=== PATIENT | female | born 1935 | race Caucasian/White ===

== ENCOUNTER 2017-07-08 07:04 | Outpatient (CLI) | payer MEDICARE ==
[2017-07-08 07:59] LABS: BASO # 0.1 x10^3/uL (0.0-0.2); BASO % 0 % (0-3); EOS # 0.1 x10^3/uL (0.0-0.7); EOS % 1 % (0-3); HEMATOCRIT 26.5 % (36.0-47.0); HEMOGLOBIN 9.1 g/dL (12.0-15.5); LYMPH # 4.8 x10^3/uL (1.0-4.8); LYMPH % 36 % (24-48); MEAN CORPUSCULAR HEMOGLOBIN 32 pg (25-35); MEAN CORPUSCULAR HGB CONC 34 g/dL (31-37); MEAN CORPUSCULAR VOLUME 94 fL (79-100); MONO # 1.5 x10^3/uL (0.0-1.1); MONO % 12 % (0-9); NEUT # 6.7 x10^3uL (1.8-7.7); NEUT % 51 % (31-73); PLATELET COUNT 106 x10^3/uL (140-400); RED BLOOD COUNT 2.83 x10^6/uL (3.50-5.40); RED CELL DISTRIBUTION WIDTH 18.4 % (11.5-14.5); WHITE BLOOD COUNT 13.3 x10^3/uL (4.0-11.0)
[2017-07-08 08:01] LABS: ADD MAN DIFF? YES
[2017-07-08 08:03] LABS: INR 1.1 (0.8-1.1); PROTHROMBIN TIME PATIENT 13.7 SEC (11.7-14.0)
[2017-07-08] MEDS ORDERED: LIDOCAINE WITH 8.4% SOD BICARB 3 ML DISP.SYRIN. (08:10)
[2017-07-08] MEDS ORDERED: MIDAZOLAM HCL/PF 2 MG/2 ML VIAL. (08:24)
[2017-07-08] MEDS ORDERED: fentaNYL PF VIAL 100 MCG/2 ML VIAL (08:25)
[2017-07-08] MEDS: LIDOCAINE WITH 8.4% SOD BICARB 3 ML DISP.SYRIN. IJ (08:54)
[2017-07-08] MEDS: MIDAZOLAM HCL/PF 2 MG/2 ML VIAL. IV (08:54)
[2017-07-08] MEDS: fentaNYL PF VIAL 100 MCG/2 ML VIAL IV (08:54)
[2017-07-08 11:28] LABS: % BANDS 10 % (0-9); % BASOS 1 % (0-3); % EOS 1 % (0-5); % LYMPHS 43 % (24-48); % METAS 2 % (0-0); % MONOS 7 % (0-10); % SEGS 36 % (35-66); NUCLEATED RBC 5; PLT ESTIMATE DECREASED (ADEQUATE)
[2017-07-08 11:29] LABS: ANISOCYTOSIS MOD; POLYCHROMASIA PRESENT
== END 2017-07-08 10:35 | disposition home or self-care (01) ==
LOC: INTRAD 07:04
DX: D69.6 Thrombocytopenia, unspecified (principal); D64.9 Anemia, unspecified
CPT/HCPCS: 36415; 38222; 77012; 85007; 85025; 85610; 88184; 88185; 88237; 99152; J2250; J3010

== ENCOUNTER → 2017-07-16 | Outpatient (CLI) | payer MEDICARE, BC | END | disposition home or self-care (01) | LOC: US 15:01 | DX: D64.9 Anemia, unspecified (principal); D61.818 Other pancytopenia; R16.2 Hepatomegaly with splenomegaly, not elsewhere classified | CPT/HCPCS: 76700 ==

== ENCOUNTER → 2017-07-21 | Outpatient (CLI) | payer MEDICARE, BC | END | disposition home or self-care (01) | LOC: RAD 12:38 | DX: C90.00 Multiple myeloma not having achieved remission (principal); M51.37 Other intervertebral disc degeneration, lumbosacral region; M43.17 Spondylolisthesis, lumbosacral region | CPT/HCPCS: 77075 ==

== ENCOUNTER 2017-08-26 10:23 | Inpatient (IN) | payer MEDICARE, BC ==
[2017-08-26 12:56] LABS: BASO % 0 % (0-3); EOS % 1 % (0-3); HEMATOCRIT 22.3 % (36.0-47.0); HEMOGLOBIN 7.6 g/dL (12.0-15.5); LYMPH # 0.7 x10^3/uL (1.0-4.8); LYMPH % 14 % (24-48); MEAN CORPUSCULAR HEMOGLOBIN 33 pg (25-35); MEAN CORPUSCULAR HGB CONC 34 g/dL (31-37); MEAN CORPUSCULAR VOLUME 96 fL (79-100); MONO # 0.7 x10^3/uL (0.0-1.1); MONO % 15 % (0-9); NEUT # 3.5 x10^3uL (1.8-7.7); NEUT % 70 % (31-73); PLATELET COUNT 45 x10^3/uL (140-400); RED BLOOD COUNT 2.34 x10^6/uL (3.50-5.40); RED CELL DISTRIBUTION WIDTH 20.7 % (11.5-14.5); WHITE BLOOD COUNT 4.9 x10^3/uL (4.0-11.0)
[2017-08-26 12:58] LABS: ADD MAN DIFF? YES
[2017-08-26 13:12] LABS: ALBUMIN 3.1 g/dL (3.4-5.0); ALBUMIN/GLOBULIN RATIO 1.3 (1.0-1.7); ALK PHOS 162 U/L (46-116); ALT (SGPT) 17 U/L (14-59); ANION GAP 7 (6-14); AST (SGOT) 15 U/L (15-37); BLOOD UREA NITROGEN 17 mg/dL (7-20); BUN/CREATININE RATIO 24 (6-20); CALCIUM 7.1 mg/dL (8.5-10.1); CARBON DIOXIDE 24 mmol/L (21-32); CHLORIDE 102 mmol/L (98-107); CREATININE 0.7 mg/dL (0.6-1.0); GFR 80.5; GLUCOSE 103 mg/dL (70-99); POTASSIUM 3.8 mmol/L (3.5-5.1); SODIUM 133 mmol/L (136-145); TOTAL BILIRUBIN 0.6 mg/dL (0.2-1.0); TOTAL PROTEIN 5.5 g/dL (6.4-8.2)
[2017-08-26 13:25] LABS: % ATYL 2 % (0-0); % BANDS 3 % (0-9); % LYMPHS 16 % (24-48); % MONOS 11 % (0-10); % SEGS 68 % (35-66); NUCLEATED RBC 5
[2017-08-26 13:27] LABS: ANISOCYTOSIS SLIGHT; PLT ESTIMATE DECREASED (ADEQUATE)
[2017-08-26] MEDS ORDERED: HYDROcodone/APAP 5/325MG 1 TAB TABLET PO (15:15)
[2017-08-26] MEDS ORDERED: CHOLECALCIFEROL (VITAMIN D3) 1,000 UNIT TABLET PO (15:30)
[2017-08-26] MEDS: LEVOTHYROXINE 50 MCG TABLET PO (15:30)
[2017-08-26] MEDS ORDERED: ONDANSETRON ODT 4 MG TAB.RAPDIS. PO (15:45)
[2017-08-26] MEDS: CYANOCOBALAMIN (VITAMIN B-12) 1,000 MCG TABLET. PO (16:00)
[2017-08-26 16:17] LABS: BILIRUBIN,URINE NEGATIVE (NEG); CLARITY,URINE CLEAR; COLOR,URINE YELLOW; GLUCOSE,URINE NEGATIVE (NEG); NITRITE,URINE NEGATIVE (NEG); PROTEIN,URINE NEGATIVE (NEG-TRACE); UROBILINOGEN,URINE 0.2 mg/dL (0.2 mg/dL)
[2017-08-26 16:27] LABS: BACTERIA,URINE 0 /HPF (0-FEW); RBC,URINE 0 /HPF (0-2); SQUAMOUS EPITHELIAL CELL,UR FEW /LPF
[2017-08-26] MEDS: CHOLECALCIFEROL (VITAMIN D3) 1,000 UNIT TABLET PO (17:34)
[2017-08-26] MEDS: ASPIRIN 325 MG TABLET PO (17:34)
[2017-08-26] MEDS: SIMVASTATIN 40 MG TABLET. PO (20:59)
[2017-08-26] MEDS: CALCIUM CARB/VIT D3 250/125 TABLET. PO (20:59)
[2017-08-26] MEDS: ACYCLOVIR 200 MG CAPSULE. PO (20:59)
[2017-08-26] MEDS: REVLIMID 10 MG PO (21:04)
[2017-08-27 04:42] LABS: ADD MAN DIFF? NO
[2017-08-27 04:49] LABS: BASO % 1 % (0-3); EOS # 0.1 x10^3/uL (0.0-0.7); EOS % 3 % (0-3); HEMATOCRIT 21.3 % (36.0-47.0); HEMOGLOBIN 7.2 g/dL (12.0-15.5); LYMPH # 0.8 x10^3/uL (1.0-4.8); LYMPH % 23 % (24-48); MEAN CORPUSCULAR HEMOGLOBIN 33 pg (25-35); MEAN CORPUSCULAR HGB CONC 34 g/dL (31-37); MEAN CORPUSCULAR VOLUME 96 fL (79-100); MONO # 0.5 x10^3/uL (0.0-1.1); MONO % 16 % (0-9); NEUT # 1.8 x10^3uL (1.8-7.7); NEUT % 57 % (31-73); PLATELET COUNT 44 x10^3/uL (140-400); RED BLOOD COUNT 2.22 x10^6/uL (3.50-5.40); RED CELL DISTRIBUTION WIDTH 20.3 % (11.5-14.5); WHITE BLOOD COUNT 3.2 x10^3/uL (4.0-11.0)
[2017-08-27 05:32] LABS: ALBUMIN 2.8 g/dL (3.4-5.0); ALBUMIN/GLOBULIN RATIO 1.2 (1.0-1.7); ALK PHOS 154 U/L (46-116); ALT (SGPT) 14 U/L (14-59); ANION GAP 10 (6-14); AST (SGOT) 15 U/L (15-37); BLOOD UREA NITROGEN 12 mg/dL (7-20); BUN/CREATININE RATIO 15 (6-20); CALCIUM 7.7 mg/dL (8.5-10.1); CARBON DIOXIDE 24 mmol/L (21-32); CHLORIDE 107 mmol/L (98-107); CREATININE 0.8 mg/dL (0.6-1.0); GLUCOSE 79 mg/dL (70-99); PHOSPHORUS 2.3 mg/dL (2.6-4.7); POTASSIUM 3.7 mmol/L (3.5-5.1); SODIUM 141 mmol/L (136-145); TOTAL BILIRUBIN 0.4 mg/dL (0.2-1.0); TOTAL PROTEIN 5.1 g/dL (6.4-8.2)
[2017-08-27] MEDS: LEVOTHYROXINE 50 MCG TABLET PO (06:09)
[2017-08-27] MEDS: CYANOCOBALAMIN (VITAMIN B-12) 1,000 MCG TABLET. PO (08:52)
[2017-08-27] MEDS: CALCIUM CARB/VIT D3 250/125 TABLET. PO (08:52)
[2017-08-27] MEDS: ACYCLOVIR 200 MG CAPSULE. PO (08:52)
[2017-08-27] MEDS ORDERED: CHOLECALCIFEROL 2000 UNIT PO (13:00)
[2017-08-27] MEDS ORDERED: IV NORMAL SALINE 1000ML BAG 1,000 ML IV (15:00)
[2017-08-31] MEDS ORDERED: DEXAMETHASONE 4 MG TABLET PO (08:00)
[2017-09-04] MEDS ORDERED: DEXAMETHASONE 4 MG TABLET PO (08:00)
== END 2017-08-27 15:45 | disposition home or self-care (01) | DRG 640 ==
LOC: 6 SOUTH 10:23
DX: E86.0 Dehydration (principal); D61.810 Antineoplastic chemotherapy induced pancytopenia; C90.00 Multiple myeloma not having achieved remission; E86.9 Volume depletion, unspecified; E03.9 Hypothyroidism, unspecified; E78.5 Hyperlipidemia, unspecified; T45.1X5A Adverse effect of antineoplastic and immunosuppressive drugs, initial encounter; W19.XXXA Unspecified fall, initial encounter; M19.90 Unspecified osteoarthritis, unspecified site; I95.9 Hypotension, unspecified; I10 Essential (primary) hypertension; Z82.3 Family history of stroke; Z82.49 Family history of ischemic heart disease and other diseases of the circulatory system; Y93.89 Activity, other specified; Y92.89 Other specified places as the place of occurrence of the external cause; Y99.8 Other external cause status; Z88.8 Allergy status to other drugs, medicaments and biological substances; Z88.2 Allergy status to sulfonamides; Z88.1 Allergy status to other antibiotic agents
CPT/HCPCS: 36415; 80053; 81001; 83735; 84100; 85007; 85025

== ENCOUNTER → 2017-09-03 | Outpatient (CLI) | payer MEDICARE, BC | END | disposition home or self-care (01) | LOC: US 12:42 | DX: C90.00 Multiple myeloma not having achieved remission (principal); M79.89 Other specified soft tissue disorders | CPT/HCPCS: 93970 ==

== ENCOUNTER → 2017-09-25 | Outpatient (CLI) | payer MEDICARE, BC ==
[2017-09-25] MEDS: REGADENOSON 0.4 MG/5 ML DISP.SYRIN. IV (08:53)
== END | disposition home or self-care (01) ==
LOC: NM 09:13
DX: I21.4 Non-ST elevation (NSTEMI) myocardial infarction (principal); R53.1 Weakness; Z87.891 Personal history of nicotine dependence
CPT/HCPCS: 78452; 93017; 96374; 96375; 96376; A9500; J2785

== ENCOUNTER 2017-12-31 15:10 | Inpatient (IN) | payer MEDICARE, BC ==
[~2017-12-31 15:10] MED LIST: ACYC800T PO; ASCO10002 PO; ASPI-482 PO; ASPI325T8 PO; CALC500T PO; CHOL2000 PO; CHOL200074 PO; CYAN500T PO; DEXA4TAB PO; ESOM20CA PO; HYDR-2758 PO; HYDR-965 PO; LEVO50TA5 PO; METO50TA6 PO; OMEG1CAP27 PO; ONDA4TAB12 PO; ONDA8TAB9 PO; PRED-220 PO; PRED20TA PO; SIMV40TA3 PO; TRAM50TA PO; non
[2017-12-31] MEDS ORDERED: PANT20TA2 PO (15:59)
[2017-12-31] MEDS ORDERED: FLUD0.1T PO (15:59)
[2017-12-31] MEDS ORDERED: GABA-585 PO (15:59)
[2017-12-31] MEDS ORDERED: ASPI-612 PO (15:59)
[2017-12-31] MEDS ORDERED: SUCR1TAB35 PO (15:59)
[2017-12-31] MEDS: POTASSIUM CL 20MEQ-0.45% NACL 1,000 ML IV SCH (18:33)
[2017-12-31] MEDS: PANTOPRAZOLE IV PUSH 40 MG VIAL. IVP SCH (18:35)
[2017-12-31] MEDS: LEVOTHYROXINE 50 MCG TABLET PO SCH (18:36)
[2017-12-31] MEDS: CYANOCOBALAMIN (VITAMIN B-12) 1,000 MCG TABLET. PO SCH (18:37)
[2017-12-31] MEDS: ONDANSETRON ODT 4 MG TAB.RAPDIS. PO PRN (18:37)
[2017-12-31] MEDS: ASPIRIN ENTERIC COATED 81 MG TABLET.DR. PO SCH (18:37)
[2017-12-31] MEDS: HYDROcodone/APAP 5/325MG 1 TAB TABLET PO PRN ×2 (18:38→23:36)
[2017-12-31 18:52] LABS: BILIRUBIN,URINE NEGATIVE (NEG); CLARITY,URINE CLEAR; COLOR,URINE YELLOW; NITRITE,URINE NEGATIVE (NEG); PROTEIN,URINE NEGATIVE (NEG-TRACE); UROBILINOGEN,URINE 0.2 mg/dL (0.2 mg/dL)
[2017-12-31 19:00] VITALS: BP 161/83
[2017-12-31 19:04] LABS: BACTERIA,URINE MODERATE /HPF (0-FEW); RBC,URINE 0 /HPF (0-2); SQUAMOUS EPITHELIAL CELL,UR FEW /LPF
[2017-12-31 19:05] LABS: HYALINE CASTS, URINE OCCASIONAL /HPF
[2017-12-31 19:54] LABS: BASO % 1 % (0-3); EOS % 1 % (0-3); HEMATOCRIT 33.6 % (36.0-47.0); HEMOGLOBIN 11.6 g/dL (12.0-15.5); LYMPH # 1.5 x10^3/uL (1.0-4.8); LYMPH % 27 % (24-48); MEAN CORPUSCULAR HEMOGLOBIN 31 pg (25-35); MEAN CORPUSCULAR HGB CONC 34 g/dL (31-37); MEAN CORPUSCULAR VOLUME 89 fL (79-100); MONO # 0.7 x10^3/uL (0.0-1.1); MONO % 13 % (0-9); NEUT # 3.1 x10^3uL (1.8-7.7); NEUT % 58 % (31-73); PLATELET COUNT 225 x10^3/uL (140-400); RED BLOOD COUNT 3.77 x10^6/uL (3.50-5.40); RED CELL DISTRIBUTION WIDTH 16.1 % (11.5-14.5); WHITE BLOOD COUNT 5.3 x10^3/uL (4.0-11.0)
[2017-12-31 20:15] LABS: ALBUMIN 3.4 g/dL (3.4-5.0); ALBUMIN/GLOBULIN RATIO 1.3 (1.0-1.7); CALCIUM 8.8 mg/dL (8.5-10.1); CREATININE 0.8 mg/dL (0.6-1.0); TOTAL BILIRUBIN 0.7 mg/dL (0.2-1.0)
[2017-12-31 20:17] LABS: POTASSIUM 2.3 mmol/L (3.5-5.1)
[2017-12-31] MEDS: SIMVASTATIN 40 MG TABLET. PO SCH (21:20)
[2017-12-31] MEDS: GABAPENTIN 400 MG CAPSULE. PO SCH (21:20)
[2017-12-31] MEDS: FLUDROCORTISONE 0.1 MG TABLET PO SCH (21:20)
[2017-12-31] MEDS: ACYCLOVIR 200 MG CAPSULE. PO SCH (21:20)
[2017-12-31] MEDS: POTASSIUM CHLORIDE 10MEQ 100 ML IV SCH ×3 (21:21→23:36)
[2017-12-31 23:01] VITALS: BP 144/75
[2018-01-01] MEDS: POTASSIUM CHLORIDE 10MEQ 100 ML IV SCH (00:38)
[2018-01-01 03:09] VITALS: BP 117/67
[2018-01-01] MEDS: LEVOTHYROXINE 50 MCG TABLET PO SCH (05:31)
[2018-01-01] MEDS: POTASSIUM CL 20MEQ-0.45% NACL 1,000 ML IV SCH (05:32)
[2018-01-01] MEDS: PANTOPRAZOLE IV PUSH 40 MG VIAL. IVP SCH (06:36)
[2018-01-01 07:00] VITALS: BP 149/68
[2018-01-01] MEDS ORDERED: IOHEXOL 300 MG/ML 100ML VIAL. IV ONE (08:15)
[2018-01-01] MEDS ORDERED: CONTRAST GIVEN. MC PRN (08:15)
[2018-01-01] MEDS ORDERED: IOHEXOL 240 MG/ML 50ML VIAL. PO ONE (08:15)
--- NOTE | 2018-01-01 08:55 | PDOC ---
PROGRESS NOTES Subjective Subjective HPI - f/u of Multiple myeloma ROS - abd pain better Objective Objective Vital Signs Date Time Temp Pulse Resp B/P (MAP) Pulse Ox O2 Delivery O2 Flow Rate FiO2 01/01/18 07:00 98.5 61 16 149/68 (95) 98 Room Air 98.5 Intake and Output 01/01/18 07:00 Intake Total 0 ml Output Total 600 ml Balance -600 ml Intake Oral 0 ml Output Urine Total 600 ml # Voids 1 Physical Exam Abdomen: Soft Heart: Normal S1, Normal S2 General: Alert, Oriented X3, No acute distress Neuro: Normal speech Psych/Mental Status: Mental status NL Assessment Assessment Imp/Plan: 1. Multiple myeloma, last chemo on 12/08/17. Defer further chemo until her functional status improves. 2. Abd pain - CT pending 3. Hypokalemia, supplementation per Dr Coleman I d/w Dr Coleman Comment Review of Relevant I have reviewed the following items jamir (where applicable) has been applied. Labs Laboratory Tests Test 12/31/17 17:50 12/31/17 19:00 01/01/18 05:40 Urine Collection Type Void Urine Color Yellow Urine Clarity Clear Urine pH 7.0 Urine Specific [place] 1.010 Urine Protein Negative mg/dL (NEG-TRACE) Urine Glucose (UA) Negative mg/dL (NEG) Urine Ketones (Stick) Trace mg/dL (NEG) Urine Blood Small (NEG) Urine Nitrite Negative (NEG) Urine Bilirubin Negative (NEG) Urine Urobilinogen Dipstick 0.2 mg/dL (0.2 mg/dL) Urine Leukocyte Esterase Small (NEG) Urine RBC 0 /HPF (0-2) Urine WBC 5-10 /HPF (0-4) Urine Squamous Epithelial Cells Few /LPF Urine Bacteria Moderate /HPF (0-FEW) Urine Hyaline Casts Occasional /HPF Urine Mucus Slight /LPF White Blood Count 5.3 x10^3/uL (4.0-11.0) Red Blood Count 3.77 x10^6/uL (3.50-5.40) Hemoglobin 11.6 g/dL (12.0-15.5) Hematocrit 33.6 % (36.0-47.0) Mean Corpuscular Volume 89 fL (79-100) Mean Corpuscular Hemoglobin 31 pg (25-35) Mean Corpuscular Hemoglobin Concent 34 g/dL (31-37) Red Cell Distribution Width 16.1 % (11.5-14.5) Platelet Count 225 x10^3/uL (140-400) Neutrophils (%) (Auto) 58 % (31-73) Lymphocytes (%) (Auto) 27 % (24-48) Monocytes (%) (Auto) 13 % (0-9) Eosinophils (%) (Auto) 1 % (0-3) Basophils (%) (Auto) 1 % (0-3) Neutrophils # (Auto) 3.1 x10^3uL (1.8-7.7) Lymphocytes # (Auto) 1.5 x10^3/uL (1.0-4.8) Monocytes # (Auto) 0.7 x10^3/uL (0.0-1.1) Eosinophils # (Auto) 0.0 x10^3/uL (0.0-0.7) Basophils # (Auto) 0.0 x10^3/uL (0.0-0.2) Sodium Level 139 mmol/L (136-145) Potassium Level 2.3 mmol/L (3.5-5.1) 3.1 mmol/L (3.5-5.1) Chloride Level 101 mmol/L (98-107) Carbon Dioxide Level 31 mmol/L (21-32) Anion Gap 7 (6-14) Blood Urea Nitrogen 8 mg/dL (7-20) Creatinine 0.8 mg/dL (0.6-1.0) Estimated GFR (Cockcroft-Gault) 69.0 BUN/Creatinine Ratio 10 (6-20) Glucose Level 138 mg/dL (70-99) Calcium Level 8.8 mg/dL (8.5-10.1) Total Bilirubin 0.7 mg/dL (0.2-1.0) Aspartate Amino Transf (AST/SGOT) 15 U/L (15-37) Alanine Aminotransferase (ALT/SGPT) 18 U/L (14-59) Alkaline Phosphatase 51 U/L (46-116) Total Protein 6.0 g/dL (6.4-8.2) Albumin 3.4 g/dL (3.4-5.0) Albumin/Globulin Ratio 1.3 (1.0-1.7) Amylase Level 49 U/L (25-115) Lipase 208 U/L (73-393) Laboratory Tests Test 12/31/17 17:50 12/31/17 19:00 01/01/18 05:40 Urine Collection Type Void Urine Color Yellow Urine Clarity Clear Urine pH 7.0 Urine Specific [place] 1.010 Urine Protein Negative mg/dL (NEG-TRACE) Urine Glucose (UA) Negative mg/dL (NEG) Urine Ketones (Stick) Trace mg/dL (NEG) Urine Blood Small (NEG) Urine Nitrite Negative (NEG) Urine Bilirubin Negative (NEG) Urine Urobilinogen Dipstick 0.2 mg/dL (0.2 mg/dL) Urine Leukocyte Esterase Small (NEG) Urine RBC 0 /HPF (0-2) Urine WBC 5-10 /HPF (0-4) Urine Squamous Epithelial Cells Few /LPF Urine Bacteria Moderate /HPF (0-FEW) Urine Hyaline Casts Occasional /HPF Urine Mucus Slight /LPF White Blood Count 5.3 x10^3/uL (4.0-11.0) Red Blood Count 3.77 x10^6/uL (3.50-5.40) Hemoglobin 11.6 g/dL (12.0-15.5) Hematocrit 33.6 % (36.0-47.0) Mean Corpuscular Volume 89 fL (79-100) Mean Corpuscular Hemoglobin 31 pg (25-35) Mean Corpuscular Hemoglobin Concent 34 g/dL (31-37) Red Cell Distribution Width 16.1 % (11.5-14.5) Platelet Count 225 x10^3/uL (140-400) Neutrophils (%) (Auto) 58 % (31-73) Lymphocytes (%) (Auto) 27 % (24-48) Monocytes (%) (Auto) 13 % (0-9) Eosinophils (%) (Auto) 1 % (0-3) Basophils (%) (Auto) 1 % (0-3) Neutrophils # (Auto) 3.1 x10^3uL (1.8-7.7) Lymphocytes # (Auto) 1.5 x10^3/uL (1.0-4.8) Monocytes # (Auto) 0.7 x10^3/uL (0.0-1.1) Eosinophils # (Auto) 0.0 x10^3/uL (0.0-0.7) Basophils # (Auto) 0.0 x10^3/uL (0.0-0.2) Sodium Level 139 mmol/L (136-145) Potassium Level 2.3 mmol/L (3.5-5.1) 3.1 mmol/L (3.5-5.1) Chloride Level 101 mmol/L (98-107) Carbon Dioxide Level 31 mmol/L (21-32) Anion Gap 7 (6-14) Blood Urea Nitrogen 8 mg/dL (7-20) Creatinine 0.8 mg/dL (0.6-1.0) Estimated GFR (Cockcroft-Gault) 69.0 BUN/Creatinine Ratio 10 (6-20) Glucose Level 138 mg/dL (70-99) Calcium Level 8.8 mg/dL (8.5-10.1) Total Bilirubin 0.7 mg/dL (0.2-1.0) Aspartate Amino Transf (AST/SGOT) 15 U/L (15-37) Alanine Aminotransferase (ALT/SGPT) 18 U/L (14-59) Alkaline Phosphatase 51 U/L (46-116) Total Protein 6.0 g/dL (6.4-8.2) Albumin 3.4 g/dL (3.4-5.0) Albumin/Globulin Ratio 1.3 (1.0-1.7) Amylase Level 49 U/L (25-115) Lipase 208 U/L (73-393) Medications Current Medications Potassium Chloride/Sodium Chloride 1,000 ml @ 100 mls/hr Q10H IV Last administered on 01/01/18 05:32; Start 12/31/17 at 17:30 Aspirin (Ecotrin) 81 mg DAILY PO Last administered on 12/31/17at 18:37; Start 12/31/17 at 18:00 Fludrocortisone Acetate (Florinef) 0.1 mg BID PO Last administered on 21:20; Start 12/31/17 at 21:00 Gabapentin (Neurontin) 400 mg HS PO Last administered on 12/31/17at 21:20; Start 12/31/17 at 21:00 Acetaminophen/ Hydrocodone Bitart (Lortab 5/325) 1 tab PRN Q4HRS PRN PO PAIN Last administered on 12/31/17at 23:36; Start 12/31/17 at 17:00 Acyclovir (Zovirax) 800 mg BID PO Last administered on 12/31/17at 21:20; Start 12/31/17 at 21:00 Vitamin D (Vitamin D3) 2,000 unit DAILY PO ; Start 01/01/18 at 09:00 Cyanocobalamin (Vitamin B-12) 500 mcg DAILY PO Last administered on 12/31/17at 18:37; Start 12/31/17 at 18:00 Levothyroxine Sodium (Synthroid) 50 mcg DAILY06 PO Last administered on at 05:31; Start 12/31/17 at 18:00 Ondansetron HCl (Zofran Odt) 4 mg PRN Q8HRS PRN PO NAUSEA/VOMITING Last administered on 12/31/17at 18:37; Start 12/31/17 at 17:15 Simvastatin (Zocor) 40 mg QHS PO Last administered on 12/31/17at 21:20; Start 12/31/17 at 21:00 Pantoprazole Sodium (PROTONIX VIAL for IV PUSH) 40 mg DAILY07 IVP Last administered on 01/01/18at 06:36; Start 12/31/17 at 17:30 Potassium Chloride/Water 100 ml @ 100 mls/hr Q1H IV Last administered on 01/01at 00:38; Start 12/31/17 at 21:00; Stop 01/01/18 at 00:59; Status DC Iohexol (Omnipaque 300 Mg/ml) 75 ml 1X ONCE IV ; Start 01/01/18 at 08:15; Stop 01/01/18 at 08:16; Status DC Iohexol (Omnipaque 240 Mg/ml) 50 ml 1X ONCE PO ; Start 01/01/18 at 08:15; Stop 01/01/18 at 08:16; Status DC Info (CONTRAST GIVEN -- Rx MONITORING) 1 each PRN DAILY PRN MC SEE COMMENTS; Start 01/01/18 at 08:15; Stop 01/03/18 at 08:14 Active Scripts Active Reported Gabapentin 100 Mg Capsule 400 Mg PO HS Fludrocortisone Acetate 0.1 Mg Tablet 0.1 Mg PO BID Aspirin Ec (Aspirin) 81 Mg Tablet. 1 Tab PO DAILY Hydrocodone-Apap 5-325 (Hydrocodone Bit/Acetaminophen) 1 Each Tablet 1 Tab PO PRN Q4HRS PRN Acyclovir 800 Mg Tablet 1 Tab PO BID Vitamin B-12 (Cyanocobalamin (Vitamin B-12)) 500 Mcg Tablet 500 Mcg PO DAILY Vitamin D-3 (Cholecalciferol (Vitamin D3)) 2,000 Unit Capsule 2,000 Unit PO AFTRNOON Zofran (Ondansetron Hcl) 8 Mg Tablet 1 Tab PO Q8HRS PRN Simvastatin 40 Mg Tablet 1 Tab PO QHS Levothyroxine Sodium 50 Mcg Tablet 1 Tab PO DAILY take 10 tablets by mouth once weekly on days 1, 8, and 15 of each 21 day cycle. Vitals/I & O Vital Sign - Last 24 Hours 12/31/17 12/31/17 12/31/17 12/31/17 18:38 19:00 20:00 23:01 Temp 98.4 98.9 98.4 98.9 Pulse 64 63 Resp 2 20 20 B/P (MAP) 161/83 (109) 144/75 (98) Pulse Ox 98 99 O2 Delivery Room Air Room Air Room Air Room Air 12/31/17 01/01/18 01/01/18 01/01/18 23:36 00:38 03:09 07:00 Temp 98.5 98.5 98.5 98.5 Pulse 68 61 Resp 20 16 B/P (MAP) 117/67 (84) 149/68 (95) Pulse Ox 96 98 O2 Delivery Room Air Room Air Room Air Room Air Intake and Output 12/31/17 12/31/17 01/01/18 15:00 23:00 07:00 Intake Total 0 ml Output Total 600 ml Balance 0 ml -600 ml SABRINA ABARCA MD Jan 01, 2018 08:55
--- NOTE | 2018-01-01 09:28 | HP ---
ADMIT DATE: 12/31/2017 CHIEF COMPLAINT AND HISTORY OF PRESENT ILLNESS: This 82-year-old white female is well known to me from followup in the office. The patient was seen in the office on the day of admission with progressive weight loss and weakness. She had no further episodes of syncope since starting Florinef. She had abdominal pain which was in the epigastric area, made worse with eating, for which she had been taking Carafate and Protonix now for several days without improvement. She was unable to eat or drink much of anything. Blood pressure was 100/60. It was felt she was somewhat dehydrated as well as had ongoing abdominal pain with no appetite. Her chemotherapy has now been held for over the last 3 weeks, with no improvement in her symptoms and the patient was felt necessary for admission for hydration and further workup of her abdominal pain. PAST MEDICAL HISTORY: Remarkable for multiple myeloma, orthostatic hypotension with multiple episodes of syncope, which seemed to be at this point at least remedied by the Florinef. She has a history of hypertension, hypothyroidism and hyperlipidemia. MEDICATIONS: Medications were brought with the patient, listed on the computer and had been addressed. ALLERGIES: SHE IS ALLERGIC TO SULFA AND AUGMENTIN. SOCIAL HISTORY: She is nonsmoker, nondrinker. , lives at home with her . FAMILY HISTORY: Noncontributory. REVIEW OF SYSTEMS: As mentioned above. PHYSICAL EXAMINATION: GENERAL: She is a well-developed, well-nourished white female, who appears ill. VITAL SIGNS: Stable. She is afebrile. Blood pressure is on the low side. HEAD, EYES, EARS, NOSE AND THROAT: Remarkable for dryness of mucous membranes. NECK: Supple, without any thyromegaly. CHEST: Clear to auscultation and percussion. HEART: Regular rate and rhythm, without S3, S4 or murmur. ABDOMEN: Soft, nontender, without hepatosplenomegaly or masses. There is marked epigastric tenderness. EXTREMITIES: Without cyanosis, clubbing or edema. NEUROLOGIC: She is intact. IMPRESSION: Abdominal pain with poor p.o. intake, dehydration with abdominal pain and multiple other problems listed above. PLAN: The patient has been admitted. Labs will be checked. IV fluids will be given. GI will be asked to see her. CT scanning of the abdomen will be done and the patient will be monitored, managed and treated appropriately. JESSICA ALANIZ MD DR: Markos JOB#: [id number] / [id number]
--- NOTE | 2018-01-01 09:57 | PDOC2 ---
GI CONSULT Reason For Consult: Abdominal pain, h/o Multiple Myeloma HPI: HPI: Pt is a 82 y/o female who was a direct admit by her PCP, Dr. Coleman, for abdominal pain and h/o multiple myeloma. She reports mainly upper abdominal pain , which also may be felt across her entire abdomen at times. The pain is aggravated by eating, though pt has not identified any particular dietary triggers. The pain seems to be worse at night. She does admit to associated nausea. She reports the pain was at its worst last . She saw her PCP on Thursday, and was given prescriptions for Pantoprazole and Sucralfate. She tried these medications (only for a short period) and had not noticed much improvement on the medications. She reports lack of appetite and early satiety. She has not been able to eat much, and has been feeling progressively weaker. Pt was also reportedly diagnosed with hypokalemia at her PCP office recently and was started on OTC potassium supplements. She felt this may have caused abdominal pain. She is also taking Fludrocortisone to help prevent hypotension, as she has had 8 syncopal episodes while on chemotherapy. Pt was diagnosed with multiple myeloma and started chemotherapy in 06/2017. Her last chemotherapy treatment was ~3 weeks ago. Pt does admit to having intermittent episodes of diarrhea and fecal incontinence while on chemotherapy. She last had a diarrheal stool on Thursday. She had a small, formed BM yesterday. She has reportedly had negative stool studies previously. Pt does not believe she has had an EGD in the past. She believes her last colonoscopy may have been 10 or more years ago. Pt has h/o abdominal hernia surgery, done 15-20 years ago. She was found to be hypokalemic again on admission and was started on potassium. She is currently drinking contrast for a CT A/P which has been scheduled for today. PMH: PMH: Remarkable for multiple myeloma, orthostatic hypotension with multiple episodes of syncope, which seemed to be at this point at least remedied by the Florinef. She has a history of hypertension, hypothyroidism and hyperlipidemia. FH: Family History: No pertinent hx Social History: Smoke: No ALCOHOL: none Drugs: None ROS: GEN: Denies fevers, chills, sweats HEENT: Denies blurred vision, sore throat CV: Denies chest pain RESP: Denies shortness of air, cough GI: Per HPI : Denies hematuria, dysuria ENDO: + weight loss NEURO: Denies confusion, dizziness MSK:+ weakness SKIN: Denies jaundice, pruritus Vitals: Vitals: Vital Signs Date Time Temp Pulse Resp B/P (MAP) Pulse Ox O2 Delivery O2 Flow Rate FiO2 01/01/18 07:00 98.5 61 16 149/68 (95) 98 Room Air 98.5 Labs: Labs: Laboratory Tests Test 12/31/17 17:50 12/31/17 19:00 01/01/18 05:40 Urine Collection Type Void Urine Color Yellow Urine Clarity Clear Urine pH 7.0 Urine Specific [place] 1.010 Urine Protein Negative mg/dL (NEG-TRACE) Urine Glucose (UA) Negative mg/dL (NEG) Urine Ketones (Stick) Trace mg/dL (NEG) Urine Blood Small (NEG) Urine Nitrite Negative (NEG) Urine Bilirubin Negative (NEG) Urine Urobilinogen Dipstick 0.2 mg/dL (0.2 mg/dL) Urine Leukocyte Esterase Small (NEG) Urine RBC 0 /HPF (0-2) Urine WBC 5-10 /HPF (0-4) Urine Squamous Epithelial Cells Few /LPF Urine Bacteria Moderate /HPF (0-FEW) Urine Hyaline Casts Occasional /HPF Urine Mucus Slight /LPF White Blood Count 5.3 x10^3/uL (4.0-11.0) Red Blood Count 3.77 x10^6/uL (3.50-5.40) Hemoglobin 11.6 g/dL (12.0-15.5) Hematocrit 33.6 % (36.0-47.0) Mean Corpuscular Volume 89 fL (79-100) Mean Corpuscular Hemoglobin 31 pg (25-35) Mean Corpuscular Hemoglobin Concent 34 g/dL (31-37) Red Cell Distribution Width 16.1 % (11.5-14.5) Platelet Count 225 x10^3/uL (140-400) Neutrophils (%) (Auto) 58 % (31-73) Lymphocytes (%) (Auto) 27 % (24-48) Monocytes (%) (Auto) 13 % (0-9) Eosinophils (%) (Auto) 1 % (0-3) Basophils (%) (Auto) 1 % (0-3) Neutrophils # (Auto) 3.1 x10^3uL (1.8-7.7) Lymphocytes # (Auto) 1.5 x10^3/uL (1.0-4.8) Monocytes # (Auto) 0.7 x10^3/uL (0.0-1.1) Eosinophils # (Auto) 0.0 x10^3/uL (0.0-0.7) Basophils # (Auto) 0.0 x10^3/uL (0.0-0.2) Sodium Level 139 mmol/L (136-145) Potassium Level 2.3 mmol/L (3.5-5.1) 3.1 mmol/L (3.5-5.1) Chloride Level 101 mmol/L (98-107) Carbon Dioxide Level 31 mmol/L (21-32) Anion Gap 7 (6-14) Blood Urea Nitrogen 8 mg/dL (7-20) Creatinine 0.8 mg/dL (0.6-1.0) Estimated GFR (Cockcroft-Gault) 69.0 BUN/Creatinine Ratio 10 (6-20) Glucose Level 138 mg/dL (70-99) Calcium Level 8.8 mg/dL (8.5-10.1) Total Bilirubin 0.7 mg/dL (0.2-1.0) Aspartate Amino Transf (AST/SGOT) 15 U/L (15-37) Alanine Aminotransferase (ALT/SGPT) 18 U/L (14-59) Alkaline Phosphatase 51 U/L (46-116) Total Protein 6.0 g/dL (6.4-8.2) Albumin 3.4 g/dL (3.4-5.0) Albumin/Globulin Ratio 1.3 (1.0-1.7) Amylase Level 49 U/L (25-115) Lipase 208 U/L (73-393) Allergies: Coded Allergies: Sulfa (Sulfonamide Antibiotics) (Verified Allergy, Intermediate, Unknown, 12/05/15) famciclovir (Verified Allergy, Intermediate, ITCH, 12/05/15) amoxicillin (Verified Adverse Reaction, Intermediate, Diarrhea, 12/06/15) clavulanic acid (Verified Adverse Reaction, Intermediate, Diarrhea, ) Medications: Current Medications Medications (Trade) Dose Ordered Sig/Sam Route PRN Reason Start Time Stop Time Status Last Admin Dose Admin Potassium Chloride/Sodium Chloride 1,000 ml @ 100 mls/hr Q10H IV 12/31/17 17:30 01/01/18 05:32 Aspirin (Ecotrin) 81 mg DAILY PO 12/31/17 18:00 12/31/17 18:37 Fludrocortisone Acetate (Florinef) 0.1 mg BID PO 12/31/17 21:00 12/31/17 21:20 Gabapentin (Neurontin) 400 mg HS PO 12/31/17 21:00 12/31/17 21:20 Acetaminophen/ Hydrocodone Bitart (Lortab 5/325) 1 tab PRN Q4HRS PRN PO PAIN 12/31/17 17:00 12/31/17 23:36 Acyclovir (Zovirax) 800 mg BID PO 12/31/17 21:00 12/31/17 21:20 Cyanocobalamin (Vitamin B-12) 500 mcg DAILY PO 12/31/17 18:00 12/31/17 18:37 Levothyroxine Sodium (Synthroid) 50 mcg DAILY06 PO 12/31/17 18:00 01/01/18 05:31 Ondansetron HCl (Zofran Odt) 4 mg PRN Q8HRS PRN PO NAUSEA/VOMITING 12/31/17 17:15 12/31/17 18:37 Simvastatin (Zocor) 40 mg QHS PO 12/31/17 21:00 12/31/17 21:20 Pantoprazole Sodium (PROTONIX VIAL for IV PUSH) 40 mg DAILY07 IVP 12/31/17 17:30 01/01/18 06:36 Potassium Chloride/Water 100 ml @ 100 mls/hr Q1H IV 12/31/17 21:00 01/01/18 00:59 DC 01/01/18 00:38 Imaging: Imaging: No current imaging studies PE: GEN: NAD HEENT: Atraumatic, PERRLA LUNGS: CTAB HEART: RRR, no murmurs ABD: TTP epigastric, RUQ, RLQ, LLQ EXTREMITY: No edema SKIN: No rashes, no jaundice NEURO/PSYCH: A & O 3 A/P: A/P: Abdominal pain, mainly upper abdomen -Await CT A/P results -Consider EGD if negative and symptoms persist -Recommend PPI daily Hypokalemia -Replacement per Dr. Coleman -Checking magnesium level Multiple Myeloma -On chemotherapy treatments since 06/2017, last treatment in 11/2018 -Follows with oncology, treatment on hold for now CRC screening -Last colonoscopy may have been 10 or more years ago -Consider colonoscopy as outpatient in future CAYDEN ASHER Jan 01, 2018 09:57
[2018-01-01] MEDS: ASPIRIN ENTERIC COATED 81 MG TABLET.DR. PO SCH (10:38)
[2018-01-01] MEDS: CYANOCOBALAMIN (VITAMIN B-12) 1,000 MCG TABLET. PO SCH (10:38)
[2018-01-01] MEDS: FLUDROCORTISONE 0.1 MG TABLET PO SCH ×2 (10:38→20:50)
[2018-01-01] MEDS: CHOLECALCIFEROL (VITAMIN D3) 1,000 UNIT TABLET PO SCH (10:39)
[2018-01-01] MEDS: ACYCLOVIR 200 MG CAPSULE. PO SCH ×2 (10:40→20:51)
[2018-01-01 11:00] VITALS: BP 134/76
--- NOTE | 2018-01-01 11:33 | RAD ---
CT of the abdomen and pelvis with contrast, 01/01/2018: HISTORY: Abdominal pain Multidetector CT imaging was performed following oral and IV administration of contrast. No hepatic abnormality is detected. The gallbladder is unremarkable. No pancreatic abnormality is seen. The spleen is of normal size. No renal or adrenal abnormality is detected. There is mild aortoiliac calcific plaquing without evidence of aneurysm. No abdominal or pelvic adenopathy is seen. The bladder is unremarkable. The bowel loops are not dilated. No free fluid or free air is evident in the abdomen or pelvis. There are a few scattered lucencies in the bones compatible with the given history of multiple myeloma. The most prominent of these lesions lies in the left iliac bone. There is a mild superior endplate deformity at L4 of indeterminate age. There is chronic grade 2 spondylolisthesis at L5-S1. That disc space is fused. There is moderate underlying central spinal stenosis at that level. IMPRESSION: 1. No acute abdominal or pelvic abnormality is detected. 2. Scattered osseous lucencies compatible with the history of multiple myeloma. 3. Grade 2 chronic spondylolisthesis at L5-S1 with moderate underlying central spinal stenosis. PQRS Compliance Statement: One or more of the following individualized dose reduction techniques were utilized for this examination: 1. Automated exposure control 2. Adjustment of the mA and/or kV according to patient size 3. Use of iterative reconstruction technique Electronically signed by: Eugene Horton MD (01/01/2018 11:30 AM) [facility]
[2018-01-01] MEDS: POTASSIUM CHLORIDE 40 MEQ in IV 1/2 NORMAL SALINE 1,000 ML IV SCH (14:37)
--- NOTE | 2018-01-01 14:41 | CONS ---
DATE OF CONSULTATION: 12/31/2017 REQUESTING PHYSICIAN: Dr. Sudheer Mims REASON FOR CONSULTATION: Multiple myeloma, now admitted with abdominal pain. HISTORY OF PRESENT ILLNESS: The patient is an 82-year-old female who was diagnosed with stage 2 multiple myeloma by a bone marrow aspiration and biopsy on 07/08/2017 which revealed 95% plasma cells. Serum protein electrophoresis on 07/06/2017 did not reveal any M-spike. Serum free light chains revealed elevated lambda free light chain at 60.25 with kappa lambda ratio of 0. She also had evidence of diffuse bony demineralization consistent with multiple myeloma. She was initially started on chemotherapy with Revlimid, Velcade and Decadron on 07/27/2017. However, in view of repeated syncopal episodes, Revlimid was discontinued and she continued to get Velcade. She received cycle #7, day #1 of Velcade on 12/08/2017 and then even the Velcade and Decadron was discontinued because of repeated syncopal episodes. She has had extensive workup for syncope with no clear etiology. She has not had any recurrent episodes since the discontinuation of chemotherapy on 12/08/2017. However, she has noted worsening abdominal pain of 1 week duration, which brought her to the hospital and she was admitted on 12/31/2017. She also has nausea, but no vomiting. She had 1 episode of diarrhea. No constipation. She reports poor appetite and weight loss. No fevers, chills or night sweats. PAST MEDICAL HISTORY: Hypothyroidism, back pain, hypertension. FAMILY HISTORY: Positive for hypertension, depression, stroke and hypertension. SOCIAL HISTORY: Never smoker. She is . REVIEW OF SYSTEMS: A 12-point review of system was performed. Pertinent positives are mentioned in the history of present illness. Rest of the system review is negative. PHYSICAL EXAMINATION: GENERAL APPEARANCE: The patient is an 82-year-old female who is in no acute cardiorespiratory distress. VITAL SIGNS: She is afebrile. HEENT: Head atraumatic, normocephalic. Eyes: No icterus. NECK: Supple. CHEST: Bilaterally symmetrical. HEART: S1, S2 normal. ABDOMEN: Soft, mildly tender to deep palpation and there is guarding in the epigastric and the left upper quadrant. CENTRAL NERVOUS SYSTEM: No focal deficits. LYMPHATICS: No lymphadenopathy. SKIN: No rashes. PSYCHOLOGIC: Mood and affect are appropriate. MUSCULOSKELETAL: No joint effusions. LABORATORY DATA: Free lambda light chains had decreased from 60.25 on 07/06/2017 down to 0.73 on 11/10/2017 indicating a good response to chemotherapy. IMPRESSION AND PLAN: 1. Stage 2 multiple myeloma. She was unable to tolerate Revlimid. She received cycle #7, day #1 of treatment with Velcade on 12/08/2017. Then, Velcade and Decadron were also discontinued due to repeated syncopal episodes and diarrhea. She has not been on any treatment since then and she has not had any repeated syncopal episodes. I will continue observation because of declining functional status. I will not initiate chemotherapy at this point. 2. Abdominal pain. I agree with Dr. Coleman to obtain CT scan of the abdomen. 3. Syncopal episodes, appears to have resolved. For now, I will continue to monitor. 4. Poor appetite and weight loss and declining functional status. The multiple myeloma is under good control; however, overall she has been declining. Continue supportive care. SABRINA ABARCA MD DR: BUZZ/vic JOB#: [id number] / [id number] MARCELINO
[2018-01-01 15:25] VITALS: BP 142/80
[2018-01-01] MEDS: HYDROcodone/APAP 5/325MG 1 TAB TABLET PO PRN ×2 (15:41→20:51)
[2018-01-01 19:00] VITALS: BP 154/81
[2018-01-01] MEDS: GABAPENTIN 400 MG CAPSULE. PO SCH (20:50)
[2018-01-01] MEDS: SIMVASTATIN 40 MG TABLET. PO SCH (20:50)
[2018-01-01 23:01] VITALS: BP 137/78
--- NOTE | 2018-01-01 23:19 | PN ---
DATE: 01/01/2018 ROOM: 524 SUBJECTIVE: The patient is awake and alert, feels significantly better than she did on admission, even to the point where her abdominal pain has improved significantly. OBJECTIVE: VITAL SIGNS: Stable and she is afebrile. CHEST: Clear. HEART: Regular. ABDOMEN: She has much less epigastric tenderness, which I was concerned last night that she would probably need an EGD etc by GI who will see her today. Today though she is much better. She has gotten IV Protonix, but was taking it orally at home. She was also taking potassium orally at home, but is getting an IV at this point in time. LABORATORY AND IMAGING DATA: Potassium which was 2.3 on admission with replacement overnight has gone up to 3.1, will be rechecked in the morning. IV fluids with potassium are ongoing. CT scanning ordered of her abdomen and pelvis have not been done yet. IMPRESSION: 1. Hypokalemia, improved. 2. Abdominal pain, improving. 3. Multiple myeloma, on break from chemotherapy. 4. Dehydration on admission, improved clinically. PLAN: Continue hydration, potassium replacement, await GI and oncology opinions. JESSICA ALANIZ MD DR: BRONWYN/vic JOB#: [id number] / [id number]
[2018-01-02] VITALS (7 sets, daily range): BP systolic 137–171; BP diastolic 66–89
[2018-01-02] MEDS: POTASSIUM CHLORIDE 40 MEQ in IV 1/2 NORMAL SALINE 1,000 ML IV SCH ×3 (01:03→20:48)
[2018-01-02 05:37] LABS: CREATININE 0.7 mg/dL (0.6-1.0); GFR 80.5
[2018-01-02] MEDS: PANTOPRAZOLE IV PUSH 40 MG VIAL. IVP SCH (06:30)
[2018-01-02] MEDS: LEVOTHYROXINE 50 MCG TABLET PO SCH (06:31)
[2018-01-02] MEDS: FLUDROCORTISONE 0.1 MG TABLET PO SCH ×2 (09:13→21:00)
[2018-01-02] MEDS: CYANOCOBALAMIN (VITAMIN B-12) 1,000 MCG TABLET. PO SCH (09:13)
[2018-01-02] MEDS: ACYCLOVIR 200 MG CAPSULE. PO SCH ×2 (09:13→20:53)
[2018-01-02] MEDS: ASPIRIN ENTERIC COATED 81 MG TABLET.DR. PO SCH (09:13)
[2018-01-02] MEDS: CHOLECALCIFEROL (VITAMIN D3) 1,000 UNIT TABLET PO SCH (10:52)
[2018-01-02] MEDS ORDERED: POTASSIUM CHLORIDE 40 MEQ in IV NORMAL SALINE 500ML BAG 500 ML IV ONE ×2 (11:00→17:00)
--- NOTE | 2018-01-02 12:08 | PDOC ---
Subjective: Subjective: Patient was examined at bed side. No acute events over night. She has mild post prandial epigastric abdominal pain. No associated significant nausea, vomiting or reflux symptoms. Has mild constipation at base line though she has loose bowel movement after she had contrast for imaging. No other complaints. She walked with walker in the hallway. Objective: Vital Signs: Vital Signs Date Time Temp Pulse Resp B/P (MAP) Pulse Ox O2 Delivery O2 Flow Rate FiO2 01/02/18 08:00 Room Air 01/02/18 07:00 97.9 68 18 137/66 (89) 97 97.9 Imaging: PATIENT: YESENIA MCRAE ACCOUNT: [id number] : 1935 LOCATION: [address] [place] [address] AGE: 82 SEX: F EXAM STATUS: ADM IN ORD. PHYSICIAN: JESSICA ALANIZ MD REASON: Abdominal pain PROCEDURE: CT ABD PELV W/ORAL&IV CONTRAST CT of the abdomen and pelvis with contrast, 01/01/2018: HISTORY: Abdominal pain Multidetector CT imaging was performed following oral and IV administration of contrast. No hepatic abnormality is detected. The gallbladder is unremarkable. No pancreatic abnormality is seen. The spleen is of normal size. No renal or adrenal abnormality is detected. There is mild aortoiliac calcific plaquing without evidence of aneurysm. No abdominal or pelvic adenopathy is seen. The bladder is unremarkable. The bowel loops are not dilated. No free fluid or free air is evident in the abdomen or pelvis. There are a few scattered lucencies in the bones compatible with the given history of multiple myeloma. The most prominent of these lesions lies in the left iliac bone. There is a mild superior endplate deformity at L4 of indeterminate age. There is chronic grade 2 spondylolisthesis at L5-S1. That disc space is fused. There is moderate underlying central spinal stenosis at that level. IMPRESSION: 1. No acute abdominal or pelvic abnormality is detected. 2. Scattered osseous lucencies compatible with the history of multiple myeloma. 3. Grade 2 chronic spondylolisthesis at L5-S1 with moderate underlying central spinal stenosis. Electronically signed by: Eugene Horton MD (01/01/2018 11:30 AM) [facility] DICTATED and SIGNED BY: EUGENE HORTON MD DATE: 01/01/18 1121 PE: GEN: NAD HEENT: Atraumatic, PERRLA LUNGS: CTAB HEART: RRR, no murmurs ABD: NABS, S/ND/NT, no masses EXTREMITY: No edema SKIN: No rashes, no jaundice NEURO/PSYCH: A & O 3 A/P: Yesenia Yuen is an 82 years old female patient with past medical history of hypertension, hypothyroidism and multiple myeloma that was diagnosed on 2017 s/p Velcade based chemotherapy in the past. Her clinical course had been complicated by recurrent syncopal attack with unremarkable work up as per the report. She is currently admitted for abdominal pain. Her labs are notable for normocytic anemia,hypokalemia and hypomagnesemia. Imaging of the abdomen and pelvis notable for scattered osseous lucencies compatible with the history of multiple and chronic spondylolisthesis at L5-S1 with moderate underlying central spinal stenosis. No acute process noted in the small bowel colon,liver, spleen and pancreas. Recommendations: - Continue with supportive care as per primary team. - Continue to monitor electrolytes and replace as needed ( mainly K and Mg). - Send for B12, folate and iron studies. - PT/OT. - Miralax 17 gram once a day as needed. - No urgent indication for endoscopic exam at this time. - Follow up with as out patient for possible EGD. - Please call with any Q's. CAMRON MOYER MD Jan 02, 2018 12:07
--- NOTE | 2018-01-02 15:09 | PN ---
DATE: 01/02/2018 LOCATION: She is in room 524. SUBJECTIVE: The patient is awake and alert, sitting in bed, has eaten a little bit more, but still not eating or drinking much. is present. Abdominal pain is definitely increased, is not nearly as bad as it was. OBJECTIVE: VITAL SIGNS: Stable. She is afebrile. Potassium was only 3 this morning despite IV fluids with 40 of KCl and will redose with IV potassium [address] scanning of the abdomen and pelvis were negative except for scattered osseous lucencies, consistent with her multiple myeloma. CHEST: Clear. HEART: Regular. ABDOMEN: With very minimal epigastric tenderness. EXTREMITIES: Without cyanosis, clubbing, edema. NEUROLOGIC: She is intact. ASSESSMENT: 1. Hypokalemia, persistent. 2. Abdominal pain, improving. 3. Multiple myeloma. 4. Dehydration on admission, improved. PLAN: We will continue hydration. Encourage p.o. intake. IV Protonix is ongoing. Potassium will be replaced. GI is following and need for endoscopy will be determined prior to discharge. JESSICA ALANIZ MD DR: BRONWYN/vic JOB#: [id number] / [id number]
[2018-01-02] MEDS: HYDROcodone/APAP 5/325MG 1 TAB TABLET PO PRN (15:36)
[2018-01-02] MEDS: GABAPENTIN 400 MG CAPSULE. PO SCH (20:53)
[2018-01-02] MEDS: SIMVASTATIN 40 MG TABLET. PO SCH (20:53)
[2018-01-03 03:00] VITALS: BP 155/80
[2018-01-03 04:38] LABS: CALCIUM 8.3 mg/dL (8.5-10.1); CREATININE 0.6 mg/dL (0.6-1.0); GFR 96.2; POTASSIUM 3.5 mmol/L (3.5-5.1)
[2018-01-03] MEDS: PANTOPRAZOLE IV PUSH 40 MG VIAL. IVP SCH (05:37)
[2018-01-03] MEDS: LEVOTHYROXINE 50 MCG TABLET PO SCH (05:37)
[2018-01-03 07:00] VITALS: BP 159/74
[2018-01-03] MEDS: POTASSIUM CHLORIDE 40 MEQ in IV 1/2 NORMAL SALINE 1,000 ML IV SCH (07:24)
[2018-01-03] MEDS: HYDROcodone/APAP 5/325MG 1 TAB TABLET PO PRN ×3 (08:07→22:52)
[2018-01-03 11:00] VITALS: BP 142/78
[2018-01-03] MEDS ORDERED: POTASSIUM CHLORIDE 20 MEQ TABLET.ER. PO ONE (12:30)
[2018-01-03] MEDS: MAGNESIUM CHLORIDE ER 64 MG TABLET.ER PO SCH (13:58)
[2018-01-03] MEDS: ONDANSETRON ODT 4 MG TAB.RAPDIS. PO PRN (13:59)
[2018-01-03] MEDS: CYANOCOBALAMIN (VITAMIN B-12) 1,000 MCG TABLET. PO SCH (14:00)
[2018-01-03] MEDS: CHOLECALCIFEROL (VITAMIN D3) 1,000 UNIT TABLET PO SCH (14:01)
[2018-01-03] MEDS: ACYCLOVIR 200 MG CAPSULE. PO SCH ×2 (14:02→21:42)
[2018-01-03] MEDS: ASPIRIN ENTERIC COATED 81 MG TABLET.DR. PO SCH (14:02)
[2018-01-03 15:00] VITALS: BP 157/81
[2018-01-03 19:00] VITALS: BP 158/85
[2018-01-03] MEDS: SIMVASTATIN 40 MG TABLET. PO SCH (21:42)
[2018-01-03] MEDS: GABAPENTIN 400 MG CAPSULE. PO SCH (21:42)
--- NOTE | 2018-01-03 22:03 | PN ---
DATE: 01/03/2018 LOCATION: She is in room 524. SUBJECTIVE: The patient is awake, alert. is at bedside. She feels better, still not eating, at her normal and still has some abdominal pain and took a pain pill an hour or so before me seeing her. OBJECTIVE: VITAL SIGNS: Stable. She is afebrile. Blood pressures are on the higher side and we will decrease the Florinef to once daily at this point; it was held interestingly by the nurse last night because of her blood pressure without notification. CHEST: Clear. HEART: Regular. ABDOMEN: Reveals a little more epigastric tenderness and normal today. LABORATORY DATA: Her potassium is up to 3.5 today and magnesium was 1.6 and will be replaced. IMPRESSION: 1. Hypokalemia, improved. 2. Hypomagnesemia. 3. Myeloma. 4. Abdominal pain. 5. Anorexia. PLAN: Continue present therapy, except stop IV fluids at this point in time and we can give her a dose of magnesium and potassium p.o. today. Her Florinef will be decreased to daily and we will entertain discharged tomorrow if she can maintain. JESSICA ALANIZ MD DR: BRONWYN/vic JOB#: [id number] / [id number]
[2018-01-03 23:00] VITALS: BP 163/80
[2018-01-04 03:00] VITALS: BP 149/77
[2018-01-04 04:58] LABS: CALCIUM 8.4 mg/dL (8.5-10.1); CREATININE 0.8 mg/dL (0.6-1.0)
[2018-01-04] MEDS: LEVOTHYROXINE 50 MCG TABLET PO SCH (06:36)
[2018-01-04] MEDS: PANTOPRAZOLE IV PUSH 40 MG VIAL. IVP SCH (06:37)
[2018-01-04 07:00] VITALS: BP 141/77
--- NOTE | 2018-01-04 08:14 | PDOC ---
GENERAL General: see discharge summary. VITAL SIGNS Vital Signs: Vital Signs Date Time Temp Pulse Resp B/P (MAP) Pulse Ox O2 Delivery O2 Flow Rate FiO2 01/04/18 03:00 97.6 60 18 149/77 (101) 95 Room Air 97.6 I & O I & O Intake and Output 01/04/18 07:00 Intake Total 630 ml Output Total 500 ml Balance 130 ml Intake Oral 630 ml Output Urine Total 500 ml # Voids 3 ALLERGIES Allergies: Allergies Coded Allergies Type Severity Reaction Last Updated Verified Sulfa (Sulfonamide Antibiotics) Allergy Intermediate Unknown 12/05/15 Yes famciclovir Allergy Intermediate ITCH 12/05/15 Yes amoxicillin Adverse Reaction Intermediate Diarrhea 12/06/15 Yes clavulanic acid Adverse Reaction Intermediate Diarrhea 12/06/15 Yes MEDS Medications: Current Medications Medications (Trade) Dose Ordered Sig/Sam Start Time Stop Time Status Last Admin Dose Admin Acetaminophen/ Hydrocodone Bitart (Lortab 5/325) 1 tab PRN Q4HRS PRN 12/31/17 17:00 01/03/18 22:52 1 TAB Acyclovir (Zovirax) 800 mg BID 12/31/17 21:00 01/03/18 21:42 800 MG Aspirin (Ecotrin) 81 mg DAILY 12/31/17 18:00 01/03/18 14:02 81 MG Cyanocobalamin (Vitamin B-12) 500 mcg DAILY 12/31/17 18:00 01/03/18 14:00 500 MCG Fludrocortisone Acetate (Florinef) 0.1 mg DAILY 01/04/18 09:00 Gabapentin (Neurontin) 400 mg HS 12/31/17 21:00 01/03/18 21:42 400 MG Info (CONTRAST GIVEN -- Rx MONITORING) 1 each PRN DAILY PRN 01/01/18 08:15 01/03/18 08:14 DC Iohexol (Omnipaque 240 Mg/ml) 50 ml 1X ONCE 01/01/18 08:15 01/01/18 08:16 DC 01/01/18 08:15 50 ML Iohexol (Omnipaque 300 Mg/ml) 75 ml 1X ONCE 01/01/18 08:15 01/01/18 08:16 DC 01/01/18 08:15 75 ML Levothyroxine Sodium (Synthroid) 50 mcg DAILY06 12/31/17 18:00 01/04/18 06:36 50 MCG Magnesium Chloride (Mag Delay) 64 mg DAILY 01/03/18 12:30 01/03/18 13:58 64 MG Ondansetron HCl (Zofran Odt) 4 mg PRN Q8HRS PRN 12/31/17 17:15 01/03/18 13:59 4 MG Pantoprazole Sodium (PROTONIX VIAL for IV PUSH) 40 mg DAILY07 12/31/17 17:30 01/04/18 06:37 40 MG Potassium Chloride 40 meq/ Sodium Chloride 520 ml @ 130 mls/hr 1X ONCE 01/02/18 17:00 01/02/18 20:59 DC 01/02/18 16:52 130 MLS/HR Potassium Chloride/Sodium Chloride 1,000 ml @ 100 mls/hr Q10H 12/31/17 17:30 01/01/18 13:38 DC 01/01/18 05:32 100 MLS/HR Potassium Chloride/Water 100 ml @ 100 mls/hr Q1H 12/31/17 21:00 01/01/18 00:59 DC 01/01/18 00:38 100 MLS/HR Potassium Chloride (Klor-Con) 20 meq 1X ONCE 01/03/18 12:30 01/03/18 12:31 DC 01/03/18 13:58 20 MEQ Simvastatin (Zocor) 40 mg QHS 12/31/17 21:00 01/03/18 21:42 40 MG Vitamin D (Vitamin D3) 2,000 unit DAILY 01/01/18 09:00 01/03/18 14:01 2,000 UNIT LAB Lab: Laboratory Tests Test 01/04/18 04:15 Sodium Level 140 mmol/L (136-145) Potassium Level 4.0 mmol/L (3.5-5.1) Chloride Level 105 mmol/L (98-107) Carbon Dioxide Level 28 mmol/L (21-32) Anion Gap 7 (6-14) Blood Urea Nitrogen 5 mg/dL (7-20) Creatinine 0.8 mg/dL (0.6-1.0) Estimated GFR (Cockcroft-Gault) 69.0 Glucose Level 92 mg/dL (70-99) Calcium Level 8.4 mg/dL (8.5-10.1) JESSICA ALANIZ MD Jan 04, 2018 08:14
[2018-01-04] MEDS ORDERED: FLUDROCORTISONE 0.1 MG TABLET PO SCH (09:00)
--- NOTE | 2018-01-04 09:00 | PDOC ---
PROGRESS NOTES Subjective Subjective HPI - f/u of Stage 2 multiple myeloma. ROS - abd pain resolved Objective Objective Vital Signs Date Time Temp Pulse Resp B/P (MAP) Pulse Ox O2 Delivery O2 Flow Rate FiO2 01/04/18 03:00 97.6 60 18 149/77 (101) 95 Room Air 97.6 Intake and Output 01/04/18 07:00 Intake Total 630 ml Output Total 500 ml Balance 130 ml Intake Oral 630 ml Output Urine Total 500 ml # Voids 3 Physical Exam Heart: Normal S1, Normal S2 General: Alert, Oriented X3 Lungs: Clear to auscultation Neuro: Normal speech Psych/Mental Status: Mental status NL Assessment Assessment IMPRESSION AND PLAN: 1. Stage 2 multiple myeloma. She was unable to tolerate Revlimid. She received cycle #7, day #1 of treatment with Velcade on 12/08/2017. Then, Velcade and Decadron were also discontinued due to repeated syncopal episodes and diarrhea. She has not been on any treatment since then and she has not had any repeated syncopal episodes. I will continue observation because of declining functional status. I will not initiate chemotherapy at this point. 2. Abdominal pain. CT scan of the abdomen 01/01/18 no acute changes. Scattered osseous lucencies compatible with the history of multiple myeloma. 3. Syncopal episodes, appears to have resolved. For now, I will continue to monitor. 4. Poor appetite and weight loss and declining functional status. The multiple myeloma is under good control; however, overall she has been declining. Continue supportive care. 5. Hypotension improving with florinef. Defer chemo for 3 more weeks. f/u with me in 3 weeks Comment Review of Relevant I have reviewed the following items jamir (where applicable) has been applied. Labs Laboratory Tests Test 01/03/18 03:35 01/03/18 03:55 01/04/18 04:15 Magnesium Level 1.6 mg/dL (1.8-2.4) Sodium Level 144 mmol/L (136-145) 140 mmol/L (136-145) Potassium Level 3.5 mmol/L (3.5-5.1) 4.0 mmol/L (3.5-5.1) Chloride Level 106 mmol/L (98-107) 105 mmol/L (98-107) Carbon Dioxide Level 29 mmol/L (21-32) 28 mmol/L (21-32) Anion Gap 9 (6-14) 7 (6-14) Blood Urea Nitrogen 2 mg/dL (7-20) 5 mg/dL (7-20) Creatinine 0.6 mg/dL (0.6-1.0) 0.8 mg/dL (0.6-1.0) Estimated GFR (Cockcroft-Gault) 96.2 69.0 Glucose Level 95 mg/dL (70-99) 92 mg/dL (70-99) Calcium Level 8.3 mg/dL (8.5-10.1) 8.4 mg/dL (8.5-10.1) Laboratory Tests Test 01/04/18 04:15 Sodium Level 140 mmol/L (136-145) Potassium Level 4.0 mmol/L (3.5-5.1) Chloride Level 105 mmol/L (98-107) Carbon Dioxide Level 28 mmol/L (21-32) Anion Gap 7 (6-14) Blood Urea Nitrogen 5 mg/dL (7-20) Creatinine 0.8 mg/dL (0.6-1.0) Estimated GFR (Cockcroft-Gault) 69.0 Glucose Level 92 mg/dL (70-99) Calcium Level 8.4 mg/dL (8.5-10.1) Microbiology 12/31/17 Urine Culture - Final, Complete 12/31/17 Urine Culture Result 1 (RM) - Final, Complete Medications Current Medications Potassium Chloride/Sodium Chloride 1,000 ml @ 100 mls/hr Q10H IV Last administered on 01/01/18at 05:32; Start 12/31/17 at 17:30; Stop 01/01/18 at 13 :38; Status DC Aspirin (Ecotrin) 81 mg DAILY PO Last administered on 01/03/18at 14:02; Start 12/31/17 at 18:00 Fludrocortisone Acetate (Florinef) 0.1 mg BID PO Last administered on at 09:13; Start 12/31/17 at 21:00; Stop 01/03/18 at 12:13; Status DC Gabapentin (Neurontin) 400 mg HS PO Last administered on 01/03/18at 21:42; Start 12/31/17 at 21:00 Acetaminophen/ Hydrocodone Bitart (Lortab 5/325) 1 tab PRN Q4HRS PRN PO PAIN Last administered on 01/03/18 22:52; Start 12/31/17 at 17:00 Acyclovir (Zovirax) 800 mg BID PO Last administered on 01/03/18 21:42; Start 12/31/17 at 21:00 Vitamin D (Vitamin D3) 2,000 unit DAILY PO Last administered on 01/03/18 14: 01; Start 01/01/18 at 09:00 Cyanocobalamin (Vitamin B-12) 500 mcg DAILY PO Last administered on 01/03/18 14:00; Start 12/31/17 at 18:00 Levothyroxine Sodium (Synthroid) 50 mcg DAILY06 PO Last administered on 06:36; Start 12/31/17 at 18:00 Ondansetron HCl (Zofran Odt) 4 mg PRN Q8HRS PRN PO NAUSEA/VOMITING Last administered on 01/03/18 13:59; Start 12/31/17 at 17:15 Simvastatin (Zocor) 40 mg QHS PO Last administered on 01/03/18 21:42; Start 12/31/17 at 21:00 Pantoprazole Sodium (PROTONIX VIAL for IV PUSH) 40 mg DAILY07 IVP Last administered on 01/04/18 06:37; Start 12/31/17 at 17:30 Potassium Chloride/Water 100 ml @ 100 mls/hr Q1H IV Last administered on 01/01at 00:38; Start 12/31/17 at 21:00; Stop 01/01/18 at 00:59; Status DC Iohexol (Omnipaque 300 Mg/ml) 75 ml 1X ONCE IV Last administered on 08:15; Start 01/01/18 at 08:15; Stop 01/01/18 at 08:16; Status DC Iohexol (Omnipaque 240 Mg/ml) 50 ml 1X ONCE PO Last administered on at 08:15; Start 01/01/18 at 08:15; Stop 01/01/18 at 08:16; Status DC Info (CONTRAST GIVEN -- Rx MONITORING) 1 each PRN DAILY PRN MC SEE COMMENTS; Start 01/01/18 at 08:15; Stop 01/03/18 at 08:14; Status DC Potassium Chloride 40 meq/ Sodium Chloride 1,020 ml @ 100 mls/hr [id number] IV Last administered on 01/03/18at 07:24; Start 01/01/18 at 14:00; Stop 01/03/18 at 12:13; Status DC Potassium Chloride 40 meq/ Sodium Chloride 520 ml @ 130 mls/hr 1X ONCE IV Last administered on 01/02/18at 10:53; Start 01/02/18 at 11:00; Stop 01/02/18 at 14:59; Status DC Potassium Chloride 40 meq/ Sodium Chloride 520 ml @ 130 mls/hr 1X ONCE IV Last administered on 01/02/18at 16:52; Start 01/02/18 at 17:00; Stop 01/02/18 at 20:59; Status DC Fludrocortisone Acetate (Florinef) 0.1 mg DAILY PO ; Start 01/04/18 at 09:00 Potassium Chloride (Klor-Con) 20 meq 1X ONCE PO Last administered on at 13:58; Start 01/03/18 at 12:30; Stop 01/03/18 at 12:31; Status DC Magnesium Chloride (Mag Delay) 64 mg DAILY PO Last administered on 01/03/18at 13:58; Start 01/03/18 at 12:30 Active Scripts Active Reported Gabapentin 100 Mg Capsule 400 Mg PO HS Fludrocortisone Acetate 0.1 Mg Tablet 0.1 Mg PO BID Aspirin Ec (Aspirin) 81 Mg Tablet.dr 1 Tab PO DAILY Hydrocodone-Apap 5-325 (Hydrocodone Bit/Acetaminophen) 1 Each Tablet 1 Tab PO PRN Q4HRS PRN Acyclovir 800 Mg Tablet 1 Tab PO BID Vitamin B-12 (Cyanocobalamin (Vitamin B-12)) 500 Mcg Tablet 500 Mcg PO DAILY Vitamin D-3 (Cholecalciferol (Vitamin D3)) 2,000 Unit Capsule 2,000 Unit PO AFTRNOON Zofran (Ondansetron Hcl) 8 Mg Tablet 1 Tab PO Q8HRS PRN Simvastatin 40 Mg Tablet 1 Tab PO QHS Levothyroxine Sodium 50 Mcg Tablet 1 Tab PO DAILY take 10 tablets by mouth once weekly on days 1, 8, and 15 of each 21 day cycle. Vitals/I & O Vital Sign - Last 24 Hours 01/03/18 01/03/18 01/03/18 01/03/18 11:00 15:00 18:10 19:00 Temp 97.9 97.7 97.7 97.9 97.7 97.7 Pulse 64 59 62 Resp 18 18 16 18 B/P (MAP) 142/78 (99) 157/81 (106) 158/85 (109) Pulse Ox 98 98 97 O2 Delivery Room Air Room Air Room Air Room Air 01/03/18 01/03/18 01/03/18 01/03/18 19:10 20:00 22:52 23:00 Temp 97.6 97.6 Pulse 60 Resp 18 20 18 B/P (MAP) 163/80 (107) Pulse Ox 95 97 98 O2 Delivery Room Air Room Air Room Air Room Air 01/04/18 03:00 Temp 97.6 97.6 Pulse 60 Resp 18 B/P (MAP) 149/77 (101) Pulse Ox 95 O2 Delivery Room Air Intake and Output 01/03/18 01/03/18 01/04/18 15:00 23:00 07:00 Intake Total 150 ml 300 ml 180 ml Output Total 200 ml 300 ml Balance 150 ml 100 ml -120 ml SABRINA ABARCA MD Jan 04, 2018 09:00
[2018-01-04] MEDS: CYANOCOBALAMIN (VITAMIN B-12) 1,000 MCG TABLET. PO SCH (09:28)
[2018-01-04] MEDS: MAGNESIUM CHLORIDE ER 64 MG TABLET.ER PO SCH (09:28)
[2018-01-04] MEDS: ACYCLOVIR 200 MG CAPSULE. PO SCH (09:28)
[2018-01-04] MEDS: CHOLECALCIFEROL (VITAMIN D3) 1,000 UNIT TABLET PO SCH (09:29)
[2018-01-04] MEDS: ASPIRIN ENTERIC COATED 81 MG TABLET.DR. PO SCH (09:29)
[2018-01-04] MEDS: HYDROcodone/APAP 5/325MG 1 TAB TABLET PO PRN (09:30)
--- NOTE | 2018-01-04 10:15 | DS ---
DATE OF DISCHARGE: 01/04/2018 PRIMARY DIAGNOSIS: Profound hypokalemia. ADDITIONAL DIAGNOSES: Dehydration, weakness, orthostasis, multiple myeloma, abdominal pain, likely gastritis versus gastric ulcer. CHIEF COMPLAINT AND HISTORY OF PRESENT ILLNESS: This 82-year-old white female admitted with profound weakness, anorexia on the day of admission, found to have a potassium of 2.3 on admission. SUMMARY OF STAY: The patient was admitted, hydrated. Potassium was replaced, her potassium improved up to 4 by the time of discharge. She felt significantly better, still was not eating a lot, but better, was having no orthostasis and actually having some higher blood pressures here in the office with Doc, was scaled back to once a day instead of b.i.d. Her Protonix was given IV during the stay and will transition back to oral at the time of discharge. GI saw her and felt did not need any definite EGD at this point in time. Oncology followed and stated they were not going to do any further treatment for the myeloma, give her a break until she could recover and get back some semblance of normal. DISPOSITION: The patient is discharged to home, regular diet, activity as tolerated, office in 1 week. DISCHARGE MEDICATIONS: Listed on the med rec and have been addressed. JESSICA ALANIZ MD DR: BRONWYN/vic JOB#: [id number] / [id number]
[2018-01-04] MEDS ORDERED: FLUD0.1T PO (10:41)
== END 2018-01-04 11:30 | disposition home or self-care (01) | DRG 384 ==
LOC: 5 NORTH 15:10
PROVIDERS: ADMIT Family Medicine; ATTEND Family Medicine
DX: K25.9 Gastric ulcer, unspecified as acute or chronic, without hemorrhage or perforation (principal); C90.00 Multiple myeloma not having achieved remission; E86.0 Dehydration; I95.9 Hypotension, unspecified; E83.42 Hypomagnesemia; D64.9 Anemia, unspecified; R63.0 Anorexia; K29.70 Gastritis, unspecified, without bleeding; I10 Essential (primary) hypertension; E03.9 Hypothyroidism, unspecified; E78.5 Hyperlipidemia, unspecified; E87.6 Hypokalemia; M48.00 Spinal stenosis, site unspecified; M43.17 Spondylolisthesis, lumbosacral region; Z88.2 Allergy status to sulfonamides; Z82.49 Family history of ischemic heart disease and other diseases of the circulatory system; Z81.8 Family history of other mental and behavioral disorders; Z82.3 Family history of stroke; Z88.1 Allergy status to other antibiotic agents; Z88.0 Allergy status to penicillin
CPT/HCPCS: 36415; 74177; 80048; 80053; 81001; 82150; 83690; 83735; 84132; 85025; 87086; C9113; J3480; J7040; Q0162; Q9966; Q9967

== ENCOUNTER 2018-03-11 08:17 | Outpatient (CLI) | payer MEDICARE, BC ==
[2018-03-11] VITALS (7 sets, daily range): BP systolic 137–162; BP diastolic 65–80
[~2018-03-11] VITALS: Ht 160 cm; Wt 54.9 kg
[~2018-03-11 08:17] MED LIST changes: +ASPI-612 PO; +FLUD0.1T PO; +GABA-585 PO; -HYDR-2758 PO; +HYDR-2761 PO; +HYDR-3165 PO; -HYDR-965 PO; +PANT20TA2 PO; +SUCR1TAB35 PO
[2018-03-11] MEDS ORDERED: fentaNYL PF VIAL 100 MCG/2 ML VIAL ONE (08:53)
[2018-03-11] MEDS ORDERED: MIDAZOLAM HCL/PF 2 MG/2 ML VIAL. ONE (08:53)
[2018-03-11 08:55] LABS: BASO # 0.1 x10^3/uL (0.0-0.2); BASO % 1 % (0-3); EOS # 0.2 x10^3/uL (0.0-0.7); EOS % 3 % (0-3); HEMATOCRIT 36.2 % (36.0-47.0); HEMOGLOBIN 12.5 g/dL (12.0-15.5); LYMPH # 1.8 x10^3/uL (1.0-4.8); LYMPH % 33 % (24-48); MEAN CORPUSCULAR HEMOGLOBIN 31 pg (25-35); MEAN CORPUSCULAR HGB CONC 35 g/dL (31-37); MEAN CORPUSCULAR VOLUME 90 fL (79-100); MONO # 0.6 x10^3/uL (0.0-1.1); MONO % 11 % (0-9); NEUT # 2.9 x10^3uL (1.8-7.7); NEUT % 52 % (31-73); PLATELET COUNT 214 x10^3/uL (140-400); RED BLOOD COUNT 4.02 x10^6/uL (3.50-5.40); RED CELL DISTRIBUTION WIDTH 13.7 % (11.5-14.5); WHITE BLOOD COUNT 5.5 x10^3/uL (4.0-11.0)
[2018-03-11] MEDS ORDERED: VANCOMYCIN 1GM IVPB FOR OMNI 250 ML ONE (08:58)
[2018-03-11] MEDS ORDERED: LIDOCAINE 1%/EPI 1:100,000 20 ML VIAL. ONE (08:58)
[2018-03-11 09:05] LABS: PROTHROMBIN TIME PATIENT 14.2 SEC (11.7-14.0)
[2018-03-11] MEDS ORDERED: PANT20TA2 PO (09:10)
[2018-03-11] MEDS ORDERED: HYDR-2763 PO (09:10)
[2018-03-11] MEDS ORDERED: MIDAZOLAM HCL/PF 2 MG/2 ML VIAL. IV ONE (09:15)
[2018-03-11] MEDS ORDERED: VANCOMYCIN 1GM IVPB FOR OMNI 250 ML IV ONE (09:15)
[2018-03-11] MEDS ORDERED: LIDOCAINE 1%/EPI 1:100,000 20 ML VIAL. IJ ONE (09:15)
[2018-03-11] MEDS ORDERED: fentaNYL PF VIAL 100 MCG/2 ML VIAL IV ONE (09:15)
--- NOTE | 2018-03-11 11:00 | NUR ---
Discharge Note: HAM MCRAE Discharge instructions and discharge home medications reviewed with Patient and a copy given. All questions have been answered and understanding verbalized. The following instructions and handouts were given: education was given to patient regarding wound care, port cath instructions, and moderate sedation instructions. Pt was also instructed to continue taking home medications as directed. Pt verbalized understanding. Discontinued lines and drains: peripheral iv was discontinued with no complications. Catheter tip was intact. Patient discharged to home with self care via wheelchair. Pt was accompanied by son and spouse.
--- NOTE | 2018-03-11 13:03 | RAD ---
Procedure: Ultrasound and fluoroscopically guided placement of right internal jugular power port.. 03/11/2018 12:58 PM Clinical Indication: MYELOMA Sedation: Conscious sedation was administered for 30 minutes. The patient was monitored by a qualified independent observer throughout the time of sedation. Please refer to the medical record for exact doses of medications utilized to achieve moderate sedation. Fluoroscopy time: 0.4 minutes Dose area product:0 4 Gycm2 Consent: The procedure was explained in its entirety to the patient or the patients designated utility sales representative by a member of the treatment team, including a discussion of the risks, benefits and commonly accepted alternatives to the procedure, as well as the expected consequences of no therapy whatsoever. Discussion of the risks included, but was not limited to, those that are most frequent and those that are rare but possibly severe or life-threatening, as well as the possibility of unforeseen complications. Technique and Findings: All elements of maximal sterile barrier technique including the use of a cap, mask, sterile gown, sterile gloves, large sterile sheet, appropriate hand hygiene, and 2% chlorhexidine for cutaneous antisepsis (or acceptable alternative antiseptic per current guidelines) were followed for this procedure. Following informed consent, and a timeout procedure, the patient was prepped and draped in the usual sterile fashion. Ultrasound interrogation of the right neck revealed patency and compressibility of the right internal jugular vein. A 21-gauge micropuncture was then used to gain access to this vein under ultrasound guidance. A hard copy ultrasound image was recorded. The needle was exchanged over a wire for a sheath. A 1 inch incision was made several centimeters inferior to the venotomy site. A catheter was tunneled from this site dermatotomy site in the neck. Catheter was advanced through peel-away sheath such that its tip was in the proximal right atrium with the patient supine. The catheter was trimmed to length and connected to the port reservoir. The port was found to flush and aspirate normally. The wound was closed in layers using 4-0 Vicryl suture. Sterile dressings were applied. Impression: Successful ultrasound and fluoroscopically guided placement of a right internal jugular PowerPort
== END 2018-03-11 11:00 | disposition home or self-care (01) ==
LOC: INTRAD 08:17
PROVIDERS: ATTEND Internal Medicine Hematology & Oncology
DX: C90.00 Multiple myeloma not having achieved remission (principal); Z88.1 Allergy status to other antibiotic agents; Z88.2 Allergy status to sulfonamides; Z88.8 Allergy status to other drugs, medicaments and biological substances; Z79.899 Other long term (current) drug therapy; Z79.01 Long term (current) use of anticoagulants
CPT/HCPCS: 36415; 36561; 76937; 77001; 85025; 85610; 99152; 99153; C1788; C1892; J2250; J3010; J3370; J3490; C1751

== ENCOUNTER → 2018-09-28 | Outpatient (CLI) | payer MEDICARE, BC ==
[2018-03-11 11:00] VITALS: BP 153/80
[~2018-09-28] MED LIST changes: -CALC500T PO; +CALC500T31 PO; -CYAN500T PO; +CYAN500T2 PO; +HYDR-2763 PO; +IOHEXOL 240 MG/ML 50ML VIAL. PO ONE
--- NOTE | 2018-09-28 10:17 | RAD ---
PQRS Compliance statement: One or more of the following individualized dose reduction techniques were utilized for this examination: 1. Automated exposure control. 2. Adjustment of the mA and/or kV according to patient size. 3. Use of iterative reconstruction technique. Indication:Low abdominal pain. TECHNIQUE: CT abdomen and pelvis without IV contrast with multiplanar reformats. COMPARISON: 01/01/2018. FINDINGS: Limited evaluation of solid abdominal and pelvic organs due to lack of IV contrast. Heart is normal in size. No pericardial or pleural effusion. Clear lung bases. Noncontrast appearance of the liver, spleen gallbladder, pancreas, adrenals and kidneys are within normal limits. No enlarged retroperitoneal or pelvic adenopathy. No free pelvic fluid or ascites. No bowel obstruction. Moderate colonic stool burden. Normal appendix. Uterus is present. Urinary bladder is decompressed however shows no radiopaque stone. No pneumoperitoneum. No suspicious bony lesion. Grade 2 anterolisthesis of L5 over S1. Mild superior endplate compression deformity of the L4 vertebral body which is chronic. IMPRESSION: Limited evaluation of solid abdominal and pelvic organs due to lack of IV contrast. 1. No bowel obstruction. 2. No nephrolithiasis or hydronephrosis. Electronically signed by: Brett Whitney DO (09/28/2018 10:14 AM) [facility]
== END | disposition home or self-care (01) ==
LOC: CT 08:35
PROVIDERS: ATTEND Internal Medicine Hematology & Oncology
DX: R10.30 Lower abdominal pain, unspecified (principal); M43.17 Spondylolisthesis, lumbosacral region; M43.8X6 Other specified deforming dorsopathies, lumbar region; Z88.1 Allergy status to other antibiotic agents; Z88.8 Allergy status to other drugs, medicaments and biological substances
CPT/HCPCS: 74176; Q9966

== ENCOUNTER 2019-01-16 12:19 | Inpatient (IN) | payer MEDICARE, BC ==
[~2019-01-16] VITALS: Ht 160 cm; Wt 62.2 kg
[~2019-01-16 12:19] MED LIST changes: -CYAN500T2 PO; +CYAN500T52 PO; -IOHEXOL 240 MG/ML 50ML VIAL. PO ONE; +SIMV40TA18 PO; -SIMV40TA3 PO
[2019-01-16] MEDS ORDERED: ALBUTEROL SULFATE 2.5 MG/3 ML NEBU. NEB ONE (13:00)
[2019-01-16] MEDS ORDERED: IV NORMAL SALINE 1000ML BAG 1,000 ML IV ONE (13:00)
[2019-01-16 13:10] LABS: BASO # 0.1 x10^3/uL (0.0-0.2); BASO % 1 % (0-3); EOS # 0.1 x10^3/uL (0.0-0.7); EOS % 1 % (0-3); HEMOGLOBIN 13.9 g/dL (12.0-15.5); LYMPH # 1.7 x10^3/uL (1.0-4.8); LYMPH % 23 % (24-48); MEAN CORPUSCULAR HEMOGLOBIN 32 pg (25-35); MEAN CORPUSCULAR HGB CONC 34 g/dL (31-37); MEAN CORPUSCULAR VOLUME 93 fL (79-100); MONO # 0.6 x10^3/uL (0.0-1.1); MONO % 8 % (0-9); NEUT # 4.8 x10^3/uL (1.8-7.7); NEUT % 67 % (31-73); PLATELET COUNT 134 x10^3/uL (140-400); RED BLOOD COUNT 4.41 x10^6/uL (3.50-5.40); RED CELL DISTRIBUTION WIDTH 14.4 % (11.5-14.5); WHITE BLOOD COUNT 7.2 x10^3/uL (4.0-11.0)
[2019-01-16 13:26] LABS: CREATININE 1.5 mg/dL (0.6-1.0); GFR 33.3; POTASSIUM 3.1 mmol/L (3.5-5.1)
[2019-01-16 13:31] LABS: ALBUMIN 3.7 g/dL (3.4-5.0); ALBUMIN/GLOBULIN RATIO 1.1 (1.0-1.7); TOTAL BILIRUBIN 0.6 mg/dL (0.2-1.0)
--- NOTE | 2019-01-16 13:37 | RAD ---
Chest PA and lateral: Reason for examination: Short of breath with productive cough for 10 days. Comparison is made to previous study dated 08/31/2017. Port-A-Cath is present on the right with the tip in the distal superior vena cava. The heart size is normal. Mediastinum is unremarkable. Lung starkey there is some linear density consistent with some atelectasis at the right lung base. No consolidated infiltrates or pleural effusions are seen. No acute bony abnormalities are seen. Impression: Some linear atelectasis at the right lung base. No other focal abnormality seen in the chest. Electronically signed by: Faye Malik MD (01/16/2019 1:34 PM) [facility]
--- NOTE | 2019-01-16 13:57 | PHYS DOC ---
Past Medical History Past Medical History: High Cholesterol, Hypertension, Hypothyroid, Other Additional Past Medical Histor: Multiple myleoma. Past Surgical History: Other Additional Past Surgical Histo: Umbilical hernia, L)ankle fx & repair. Alcohol Use: Rarely Drug Use: None Adult General Chief Complaint Chief Complaint: SHORTNESS OF BREATH HPI HPI Patient is a 83 year old female who presents with nasal congestion, chest congestion for the last week. Patient states she saw Dr. Coleman on Thursday and was given Levaquin because she has a consistent cough. Patient states the cough is not going away and she is short of breath all the time especially today. Patient states she is having the chills also. Patient states she's been taking DayQuil and DM cough syrup at night. Patient states she has been having a low-grade fever only. Patient denies any pain. Review of Systems Review of Systems Constitutional: fever or chills [] Eyes: Denies change in visual acuity, redness, or eye pain [] HENT: nasal congestion or denies sore throat [] Respiratory: cough or shortness of breath [] All other systems were reviewed and found to be within normal limits, except as documented in this note. Current Medications Current Medications Current Medications Medications (Trade) Dose Ordered Sig/Sam Start Time Stop Time Status Last Admin Dose Admin Albuterol Sulfate (Ventolin Neb Soln) 2.5 mg 1X ONCE 01/16/19 13:00 01/16/19 13:01 DC 01/16/19 13:34 2.5 MG Sodium Chloride 1,000 ml @ 1,000 mls/hr 1X ONCE 01/16/19 13:00 01/16/19 13:59 DC 01/16/19 13:12 1,000 MLS/HR Allergies Allergies Allergies Coded Allergies Type Severity Reaction Last Updated Verified Sulfa (Sulfonamide Antibiotics) Allergy Intermediate Unknown 12/05/15 Yes famciclovir Allergy Intermediate ITCH 12/05/15 Yes amoxicillin Adverse Reaction Intermediate Diarrhea 12/06/15 Yes clavulanic acid Adverse Reaction Intermediate Diarrhea 12/06/15 Yes Physical Exam Physical Exam Constitutional: Well developed, well nourished, no acute distress, non-toxic appearance. [] HENT: Normocephalic, atraumatic, bilateral external ears normal, oropharynx moist, no oral exudates, nose normal. [] Eyes: PERRLA, EOMI, conjunctiva normal, no discharge. [] Neck: Normal range of motion, no tenderness, supple, no stridor. [] Cardiovascular:Heart rate regular rhythm, no murmur [] Lungs & Thorax: Bilateral upper breath sounds coarse to auscultation [] Abdomen: Bowel sounds normal, soft, no tenderness, no masses, no pulsatile masses. [] Skin: Warm, dry, no erythema, no rash. [] Back: No tenderness, no CVA tenderness. [] Extremities: No tenderness, no cyanosis, no clubbing, ROM intact, no edema. [] Neurologic: Alert and oriented X 3, normal motor function, normal sensory funct ion, no focal deficits noted. [] Psychologic: Affect normal, judgement normal, mood normal. [] Current Patient Data Vital Signs Vital Signs Date Time Temp Pulse Resp B/P (MAP) Pulse Ox O2 Delivery O2 Flow Rate FiO2 01/16/19 13:36 96 Room Air 01/16/19 12:42 98.1 68 20 151/71 (97) 98.1 Lab Values Laboratory Tests Test 01/16/19 12:52 White Blood Count 7.2 x10^3/uL (4.0-11.0) Red Blood Count 4.41 x10^6/uL (3.50-5.40) Hemoglobin 13.9 g/dL (12.0-15.5) Hematocrit 41.0 % (36.0-47.0) Mean Corpuscular Volume 93 fL (79-100) Mean Corpuscular Hemoglobin 32 pg (25-35) Mean Corpuscular Hemoglobin Concent 34 g/dL (31-37) Red Cell Distribution Width 14.4 % (11.5-14.5) Platelet Count 134 x10^3/uL (140-400) L Neutrophils (%) (Auto) 67 % (31-73) Lymphocytes (%) (Auto) 23 % (24-48) L Monocytes (%) (Auto) 8 % (0-9) Eosinophils (%) (Auto) 1 % (0-3) Basophils (%) (Auto) 1 % (0-3) Neutrophils # (Auto) 4.8 x10^3/uL (1.8-7.7) Lymphocytes # (Auto) 1.7 x10^3/uL (1.0-4.8) Monocytes # (Auto) 0.6 x10^3/uL (0.0-1.1) Eosinophils # (Auto) 0.1 x10^3/uL (0.0-0.7) Basophils # (Auto) 0.1 x10^3/uL (0.0-0.2) Sodium Level 141 mmol/L (136-145) Potassium Level 3.1 mmol/L (3.5-5.1) L Chloride Level 105 mmol/L (98-107) Carbon Dioxide Level 25 mmol/L (21-32) Anion Gap 11 (6-14) Blood Urea Nitrogen 20 mg/dL (7-20) Creatinine 1.5 mg/dL (0.6-1.0) H Estimated GFR (Cockcroft-Gault) 33.3 BUN/Creatinine Ratio 13 (6-20) Glucose Level 103 mg/dL (70-99) H Lactic Acid Level 1.3 mmol/L (0.4-2.0) Calcium Level 9.0 mg/dL (8.5-10.1) Total Bilirubin 0.6 mg/dL (0.2-1.0) Aspartate Amino Transferase (AST) 17 U/L (15-37) Alanine Aminotransferase (ALT) 12 U/L (14-59) L Alkaline Phosphatase 68 U/L (46-116) Troponin I Quantitative < 0.017 ng/mL (0.000-0.055) Total Protein 7.0 g/dL (6.4-8.2) Albumin 3.7 g/dL (3.4-5.0) Albumin/Globulin Ratio 1.1 (1.0-1.7) Laboratory Tests 01/16/19 12:52 Laboratory Tests 01/16/19 12:52 EKG EKG Sinus Rhythm and no STEMI[] Interpretation Time: [address] Mcintyre Radiology/Procedures Radiology/Procedures [] Impressions: [facility] [address] [place] [address] IMAGING REPORT Signed PATIENT: VAIBHAV MCRAE ACCOUNT: [id number] : 1935 LOCATION: ER AGE: 83 SEX: F EXAM STATUS: REG ER ORD. PHYSICIAN: EMILY PEACOCK APRN REASON: soa, productive cough x10 days PROCEDURE: CHEST PA & LATERAL Chest PA and lateral: Reason for examination: Short of breath with productive cough for 10 days. Comparison is made to previous study dated 08/31/2017. Port-A-Cath is present on the right with the tip in the distal superior vena cava. The heart size is normal. Mediastinum is unremarkable. Lung starkey there is some linear density consistent with some atelectasis at the right lung base. No consolidated infiltrates or pleural effusions are seen. No acute bony abnormalities are seen. Impression: Some linear atelectasis at the right lung base. No other focal abnormality seen in the chest. Electronically signed by: Faye Wall MD (01/16/2019 1:34 PM) [facility] DICTATED and SIGNED BY: FAYE WALL MD DATE: 01/16/19 1334 Course & Med Decision Making Course & Med Decision Making Alert and oriented. Speaks in full clear sentences. Ambulatory with steady gait. Skin pink warm and dry. Patients 95% on room air. Lungs in upper lobes bilaterally have coarse sounds. Afebrile. Abdomen soft and nontender. Patient denies chest pain, dizziness, headache, abdominal pain, nausea, vomiting, diarrhea, weakness, visual changes, numbness or tingling. Chest x-ray shows atelectasis. Blood work is unremarkable. Patient is gotten up and walking desats was done. Patient desaturated to 88% became very short of breath with ambulating.[] I have spoken to Dr Coleman and the patient is admitted. He stated to start the patient on Azithromycin. Dragon Disclaimer Dragon Disclaimer This electronic medical record was generated, in whole or in part, using a voice recognition dictation system. The HEART Score for CP Pts HEART Score for Chest Pain: HEART Score for Chest Pain Response (Comments) Value History Slighlty/Non-Suspicious 0 ECG Normal 0 Age > 65 2 Risk Factors 1 or 2 Risk Factors 1 Troponin < Normal Limit 0 Total 3 Risk Factors: Risk Factors: DM, Current or recent (<one month) smoker, HTN, HLP, family history of CAD, obesity. Risk Scores: Score 0 - 3: 2.5% MACE over next 6 weeks - Discharge Home Score 4 - 6: 20.3% MACE over next 6 weeks - Admit for Clinical Observation Score 7 - 10: 72.7% MACE over next 6 weeks - Early Invasive Strategies Departure Departure Impression: Primary Impression: Shortness of breath Disposition: ADMITTED INPATIENT Admitting Physician: Jessica Coleman Condition: STABLE Referrals: JESSICA COLEMAN MD (PCP) EMILY PEACOCK APRN Jan 16, 2019 13:57
[2019-01-16] MEDS ORDERED: AZITHRMYCN 500MG IVPB FOR OMNI 250 ML IV ONE (15:00)
[2019-01-16] MEDS ORDERED: fentaNYL PF VIAL 100 MCG/2 ML VIAL IV PRN (15:00)
[2019-01-16] MEDS ORDERED: ACETAMINOPHEN 325 MG TABLET. PO PRN (15:00)
[2019-01-16] MEDS ORDERED: ONDANSETRON PF 4 MG/2 ML VIAL. IV PRN (15:00)
[2019-01-16] MEDS: IPRATRPIUM/ALBUTEROL 0.5/2.5MG 3 ML NEBU. NEB SCH ×2 (16:05→20:11)
[2019-01-16 17:00] VITALS: BP 125/56
[2019-01-16] MEDS: ACYCLOVIR 200 MG CAPSULE. PO SCH (18:35)
[2019-01-16 19:15] VITALS: BP 137/69
[2019-01-16 23:20] VITALS: BP 145/52
[2019-01-17 03:25] VITALS: BP 140/69
[2019-01-17 07:00] VITALS: BP 131/64
[2019-01-17] MEDS: IPRATRPIUM/ALBUTEROL 0.5/2.5MG 3 ML NEBU. NEB SCH ×3 (07:17→15:33)
--- NOTE | 2019-01-17 08:46 | EKG ---
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
[2019-01-17] MEDS: ACYCLOVIR 200 MG CAPSULE. PO SCH ×2 (08:47→21:29)
--- NOTE | 2019-01-17 09:41 | HP ---
ADMIT DATE: 01/16/2019 CHIEF COMPLAINT AND HISTORY OF PRESENT ILLNESS: This 83-year-old white female is well known to me from followup in the office. The patient was treated a week or so in the office for bronchitis-type symptoms. She is immunocompromised due to ongoing treatment for multiple myeloma. She has been on Levaquin for the week, not doing any better to the point where she was short of breath, especially with any sort of exertion, presented to the Emergency Room where she was found to have some desats with exercise, admitted with chest x-ray showing some linear atelectasis at the right lung base, but no other acute abnormalities. PAST MEDICAL HISTORY: Remarkable for hyperlipidemia, hypertension, hypothyroidism, multiple myeloma. PAST SURGICAL HISTORY: Remarkable for umbilical hernia repair as well as a left ankle fracture repair. MEDICATIONS: Brought with the patient, listed on the computer and have been addressed. ALLERGIES: SHE IS ALLERGIC TO AUGMENTIN, SULFA, AND FAMCICLOVIR. SOCIAL HISTORY: She is , lives at home with her , is nonsmoker, nondrinker, does not abuse drugs. FAMILY HISTORY: Noncontributory. REVIEW OF SYSTEMS: Remarkable for harsh cough at times up to 5 minutes at a time when she does feel like she is going to stop and shortness of breath with exertion. She denies any fevers, chills or aches. She has had some relative anorexia over this week and energy level has been very poor. PHYSICAL EXAMINATION: GENERAL: She is well-developed, well-nourished white female, in no acute distress at rest. VITAL SIGNS: Stable. She is afebrile. HEAD, EYES, EARS, NOSE AND THROAT: Remarkable for glasses. NECK: Supple, without adenopathy or thyromegaly. CHEST: Reveals occasional wheezing bilaterally on expiration. HEART: Regular rate and rhythm without S3, S4 or murmur. ABDOMEN: Soft, nontender, without hepatosplenomegaly or masses. EXTREMITIES: Without cyanosis, clubbing or edema. NEUROLOGIC: She is intact. LABORATORY DATA: Initial laboratory shows a white count of 7200 with a relatively normal differential. Chemistry panel was remarkable for creatinine of 1.5, potassium 3.1. Troponin was normal. IMPRESSION: 1. Lower respiratory tract infection in the patient who is immunocompromised with shortness of breath. 2. Other problems listed above. PLAN: The patient has been admitted. Steroids will be added with the wheezing. She is on relatively broad-spectrum antibiotic coverage. Pulmonary will be asked to see the patient in consultation. The patient will be monitored, managed and treated appropriately. JESSICA ALANIZ MD DR: BRONWYN/vic JOB#: [id number] / [id number]
[2019-01-17] MEDS ORDERED: POTASSIUM CHLORIDE 20 MEQ TABLET.ER. PO ONE (10:00)
[2019-01-17] MEDS ORDERED: HYDROcodone/APAP 7.5/325MG 1 TAB TABLET PO PRN (10:45)
[2019-01-17 11:00] VITALS: BP 136/67
[2019-01-17 11:00] LABS: CALCIUM 8.5 mg/dL (8.5-10.1); CREATININE 1.3 mg/dL (0.6-1.0); GFR 39.3
[2019-01-17 11:08] LABS: POTASSIUM 2.8 mmol/L (3.5-5.1)
[2019-01-17] MEDS: FLUDROCORTISONE 0.1 MG TABLET PO SCH (11:10)
[2019-01-17] MEDS: LEVOTHYROXINE 50 MCG TABLET PO SCH (11:10)
[2019-01-17] MEDS: CYANOCOBALAMIN (VITAMIN B-12) 1,000 MCG TABLET. PO SCH (11:11)
[2019-01-17] MEDS: PANTOPRAZOLE 40 MG TABLET.DR. PO SCH (11:11)
[2019-01-17] MEDS: ASPIRIN ENTERIC COATED 81 MG TABLET.DR. PO SCH (11:11)
[2019-01-17] MEDS: methylPREDNISolone SOD SUCC PF 40 MG/ML VIAL. IV SCH ×3 (11:12→21:30)
[2019-01-17] MEDS ORDERED: CHOLECALCIFEROL (VITAMIN D3) 1,000 UNIT TABLET PO SCH (13:00)
[2019-01-17 15:00] VITALS: BP 133/55
--- NOTE | 2019-01-17 15:09 | NUR ---
SW following pt for dc planning. Chart reviewed and discussed with RN. Pt lives at home with spouse. PT/OT ordered. SW will be available as needed.
--- NOTE | 2019-01-17 18:39 | PDOC ---
PULMONARY PROGRESS NOTES Vitals Vital Signs Date Time Temp Pulse Resp B/P (MAP) Pulse Ox O2 Delivery O2 Flow Rate FiO2 01/17/19 15:34 96 Nasal Cannula 2.0 01/17/19 15:00 98.6 84 16 133/55 (81) 98.6 Labs Laboratory Tests Test 01/16/19 12:52 01/17/19 10:00 White Blood Count 7.2 x10^3/uL (4.0-11.0) Red Blood Count 4.41 x10^6/uL (3.50-5.40) Hemoglobin 13.9 g/dL (12.0-15.5) Hematocrit 41.0 % (36.0-47.0) Mean Corpuscular Volume 93 fL (79-100) Mean Corpuscular Hemoglobin 32 pg (25-35) Mean Corpuscular Hemoglobin Concent 34 g/dL (31-37) Red Cell Distribution Width 14.4 % (11.5-14.5) Platelet Count 134 x10^3/uL (140-400) Neutrophils (%) (Auto) 67 % (31-73) Lymphocytes (%) (Auto) 23 % (24-48) Monocytes (%) (Auto) 8 % (0-9) Eosinophils (%) (Auto) 1 % (0-3) Basophils (%) (Auto) 1 % (0-3) Neutrophils # (Auto) 4.8 x10^3/uL (1.8-7.7) Lymphocytes # (Auto) 1.7 x10^3/uL (1.0-4.8) Monocytes # (Auto) 0.6 x10^3/uL (0.0-1.1) Eosinophils # (Auto) 0.1 x10^3/uL (0.0-0.7) Basophils # (Auto) 0.1 x10^3/uL (0.0-0.2) Sodium Level 141 mmol/L (136-145) 148 mmol/L (136-145) Potassium Level 3.1 mmol/L (3.5-5.1) 2.8 mmol/L (3.5-5.1) Chloride Level 105 mmol/L (98-107) 111 mmol/L (98-107) Carbon Dioxide Level 25 mmol/L (21-32) 28 mmol/L (21-32) Anion Gap 11 (6-14) 9 (6-14) Blood Urea Nitrogen 20 mg/dL (7-20) 11 mg/dL (7-20) Creatinine 1.5 mg/dL (0.6-1.0) 1.3 mg/dL (0.6-1.0) Estimated GFR (Cockcroft-Gault) 33.3 39.3 BUN/Creatinine Ratio 13 (6-20) Glucose Level 103 mg/dL (70-99) 85 mg/dL (70-99) Lactic Acid Level 1.3 mmol/L (0.4-2.0) Calcium Level 9.0 mg/dL (8.5-10.1) 8.5 mg/dL (8.5-10.1) Total Bilirubin 0.6 mg/dL (0.2-1.0) Aspartate Amino Transf (AST/SGOT) 17 U/L (15-37) Alanine Aminotransferase (ALT/SGPT) 12 U/L (14-59) Alkaline Phosphatase 68 U/L (46-116) Troponin I Quantitative < 0.017 ng/mL (0.000-0.055) Total Protein 7.0 g/dL (6.4-8.2) Albumin 3.7 g/dL (3.4-5.0) Albumin/Globulin Ratio 1.1 (1.0-1.7) Laboratory Tests Test 01/17/19 10:00 Sodium Level 148 mmol/L (136-145) Potassium Level 2.8 mmol/L (3.5-5.1) Chloride Level 111 mmol/L (98-107) Carbon Dioxide Level 28 mmol/L (21-32) Anion Gap 9 (6-14) Blood Urea Nitrogen 11 mg/dL (7-20) Creatinine 1.3 mg/dL (0.6-1.0) Estimated GFR (Cockcroft-Gault) 39.3 Glucose Level 85 mg/dL (70-99) Calcium Level 8.5 mg/dL (8.5-10.1) Medications Active Scripts Medications Dose Route/Sig Max Daily Dose Days Date Category Dose Instructions Hydrocodone-Acetamin 7.5-325 (Hydrocodone/Acetaminophen) 1 Each Tablet 1 Each PO PRN DAILY PRN 03/11/18 Reported Protonix (Pantoprazole Sodium) 20 Mg Tablet.dr 2 Tab PO DAILY 03/11/18 Reported Fludrocortisone Acetate 0.1 Mg Tablet 1 Tab PO DAILY 01/04/18 Reported Gabapentin (Gabapentin) 100 Mg Capsule 400 Mg PO HS 12/31/17 Reported Aspirin Ec (Aspirin) 81 Mg Tablet.dr 1 Tab PO DAILY 12/31/17 Reported Vitamin B-12 (Cyanocobalamin (Vitamin B-12)) 500 Mcg Tablet 500 Mcg PO DAILY 08/26/17 Reported Vitamin D-3 (Cholecalciferol (Vitamin D3)) 2,000 Unit Capsule 2,000 Unit PO AFTRNOON 08/26/17 Reported Simvastatin 40 Mg Tablet 1 Tab PO QHS 12/06/15 Reported Levothyroxine Sodium 50 Mcg Tablet 1 Tab PO DAILY 12/06/15 Reported take 10 tablets by mouth once weekly on days 1, 8, and 15 of each 21 day cycle. Impression . FULL NOTE DICTATED AGREE WITH CURRENT RX OFFERED PT BRONCHOSCOPY SHE WISHES TO WAIT AT THIS TIME ROBERTA ROBLES MD Jan 17, 2019 18:39
[2019-01-17 19:16] VITALS: BP 133/58
[2019-01-17] MEDS ORDERED: AZITHROMYCIN 500 MG in IV NORMAL SALINE 250ML 250 ML IV SCH (20:00)
[2019-01-17] MEDS ORDERED: cefTRIAXone IV Push 1 GM VIAL. IVP SCH (21:00)
[2019-01-17] MEDS ORDERED: GABAPENTIN 400 MG CAPSULE. PO SCH (21:00)
[2019-01-17] MEDS ORDERED: SIMVASTATIN 40 MG TABLET. PO SCH (21:00)
[2019-01-17 23:10] VITALS: BP 133/66
[2019-01-18 03:12] VITALS: BP 125/63
[2019-01-18] MEDS: methylPREDNISolone SOD SUCC PF 40 MG/ML VIAL. IV SCH (05:43)
[2019-01-18] MEDS: LEVOTHYROXINE 50 MCG TABLET PO SCH (05:44)
--- NOTE | 2019-01-18 06:25 | CONS ---
DATE OF CONSULTATION: 01/17/2019 CONSULTATION REQUESTED BY: Dr. Sudheer Mims REASON FOR CONSULTATION: Multiple myeloma, now admitted with cough and respiratory tract infection. HISTORY OF PRESENT ILLNESS: The patient is an 83-year-old female, who was diagnosed with multiple myeloma when she had a bone marrow biopsy on 07/08/2017. She was started on Revlimid, Velcade and dexamethasone on 07/27/2017, but she had syncopal episodes and she was unable to tolerate it. She was started on Velcade alone and discontinued on 12/08/2017 because of diarrhea, hypotension, and syncope. She was then started on daratumumab on 04/08/2018, and she is tolerating it very well. Multiple myeloma is under good control. M-spike has been improving. She was admitted to [facility] because of persistent cough and respiratory tract infection. PAST MEDICAL HISTORY: Hypothyroidism, back pain, hypertension. FAMILY HISTORY: Positive for hypertension and stroke. SOCIAL HISTORY: No smoking or alcohol abuse. REVIEW OF SYSTEMS: A 12-point review of system was performed. Pertinent positives are mentioned in the history of present illness. Rest of the system review is negative. PHYSICAL EXAMINATION: GENERAL APPEARANCE: The patient is an 83-year-old female, who is in no acute cardiorespiratory distress. VITAL SIGNS: Blood pressure 133/55, temperature 98.6. HEENT: Head is atraumatic, normocephalic. EYES: No icterus. NECK: Supple. CHEST: Bilaterally symmetrical. HEART: S1, S2 normal. ABDOMEN: Soft, nontender. CENTRAL NERVOUS SYSTEM: No focal deficits. LYMPHATICS: No lymphadenopathy. SKIN: No rashes. PSYCHOLOGIC: Mood and affect are appropriate. LABORATORY DATA: WBC of 7.2, hemoglobin 13.9, platelet count 134, creatinine of 1.3. IMPRESSION AND PLAN: 1. Multiple myeloma. She is on daratumumab and she is responding very well. She will continue to follow up with me in 01/2019, for her next cycle of treatment. 2. Respiratory tract infection. She underwent a chest x-ray on 01/16/2019, which revealed linear atelectasis in the right lung base, but no evidence of pneumonia. Continue IV antibiotics per Dr. Coleman. 3. Diffuse bony demineralization due to multiple myeloma. She was started on Zometa on 08/11/2017. 4. 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 Overall, stable. Continue to monitor. SABRINA ABARCA MD DR: Tori JOB#: [id number] / [id number] MARCELINO
[2019-01-18 07:00] VITALS: BP 146/78
--- NOTE | 2019-01-18 07:19 | CONS ---
DATE OF CONSULTATION: 01/17/2019 ATTENDING PHYSICIAN: Sudheer Coleman MD REASON FOR CONSULTATION: The patient seen in pulmonary consultation at the request of Dr. Coleman for increasing shortness of air, cough, wheezing. The patient failed outpatient treatment for possible clinical pneumonia and acute bronchitis. HISTORY OF PRESENT ILLNESS: The patient is an 83-year-old that is immunocompromised, currently undergoing treatment for multiple myeloma. She was treated for a week for acute bronchitis, possible clinical pneumonia with Levaquin no improvement. She presented with increasing shortness of breath, unable to tolerate activities of daily living. Her cough is mostly nonproductive. She also had a low-grade temperature at home of 100.3. She is currently in a hospitalized. I was asked to see her in consultation. She had a chest x-ray, which revealed linear atelectasis in the right lung base. No major opacities. The patient denies fever or chills. The patient denies nausea, vomiting or diarrhea. She is up-to-date on her flu and pneumonia vaccination. PAST MEDICAL HISTORY: Hyperlipidemia, hypertension, hypothyroidism, multiple myeloma. PAST SURGICAL HISTORY: Status post umbilical hernia repair. MEDICATIONS: List was reviewed. ALLERGIES: LISTED TO AUGMENTIN, SULFA AND FAMCICLOVIR. SOCIAL HISTORY: She is , lives with her . FAMILY HISTORY: Noncontributory. REVIEW OF SYSTEMS: CONSTITUTIONAL: No fever up to 100.3. HENT: No nasal congestion or sore throat. PULMONARY: As indicated above. CARDIOVASCULAR: No chest pain or pressure. GASTROINTESTINAL: No nausea, vomiting, diarrhea. GENITOURINARY: No dysuria or frequency. MUSCULOSKELETAL: No localized muscle aches or joint pains. SKIN: No new skin rashes. NEUROLOGIC: No headaches, diplopia or blurred vision. PHYSICAL EXAMINATION: GENERAL: The patient was in no respiratory distress. She had a significant barky type of cough. EYES: The sclerae were nonicteric. NECK: Jugular venous distention was not elevated. No lymphadenopathy. CHEST: Full expansion. LUNGS: Coarse breath sounds, expiratory wheeze, prolonged expiratory phase. CARDIOVASCULAR: Regular rate and rhythm with S1, S2, no S3. ABDOMEN: Soft, nontender, nondistended. EXTREMITIES: No clubbing, cyanosis or edema. NEUROLOGICAL: The patient was awake, alert, following commands. A detailed neuro exam was not performed. LABORATORY DATA: Reviewed. White count was normal. Hemoglobin and hematocrit were noted. Electrolytes were noted. RADIOLOGICAL DATA: Chest x-ray as indicated above. IMPRESSION: 1. Clinical pneumonia, patient failed outpatient treatment. 2. Immunocompromised state secondary to multiple myeloma. 3. Hyperlipidemia. 4. Multiple myeloma. PLAN: 1. Continue current support with antibiotics and steroids, bronchodilators. 2. I did go over the possibility of performing a bronchoscopy. The patient was not enamored with the idea at this time. For now, I feel comfortable enough to continue current the medical regimen. Discharge home soon and follow up in my office. Dr. Coleman, I do appreciate the privilege in sharing in the patient's care, the patient was also informed that her cough would last approximately 4-6 weeks, mostly related to acute tracheobronchitis, possibly viral in origin. ROBERTA ROBLES MD DR: BATSHEVA/vic JOB#: [id number] / [id number]
[2019-01-18] MEDS: PANTOPRAZOLE 40 MG TABLET.DR. PO SCH (08:37)
[2019-01-18] MEDS: ASPIRIN ENTERIC COATED 81 MG TABLET.DR. PO SCH (08:37)
[2019-01-18] MEDS: CYANOCOBALAMIN (VITAMIN B-12) 1,000 MCG TABLET. PO SCH (08:37)
[2019-01-18] MEDS: FLUDROCORTISONE 0.1 MG TABLET PO SCH (08:37)
[2019-01-18] MEDS: ACYCLOVIR 200 MG CAPSULE. PO SCH (08:38)
--- NOTE | 2019-01-18 08:51 | PDOC ---
PROGRESS NOTES Subjective Subjective HPI - f/u of Multiple myeloma ROS - has cough Objective Objective Vital Signs Date Time Temp Pulse Resp B/P (MAP) Pulse Ox O2 Delivery O2 Flow Rate FiO2 01/18/19 03:12 98.2 67 18 125/63 (83) 92 Room Air 98.2 01/17/19 23:10 2.0 Intake and Output 01/18/19 07:00 Intake Total 1150 ml Balance 1150 ml Intake Oral 1150 ml Physical Exam Heart: Normal S1, Normal S2 General: Alert, Oriented X3 Lungs: Clear to auscultation Neuro: Normal speech Psych/Mental Status: Mental status NL Assessment Assessment Problems Medical Problems: (1) Lower respiratory tract infection Status: Acute (2) Shortness of breath Status: Acute IMPRESSION AND PLAN: 1. Multiple myeloma. She is on daratumumab and she is responding very well. She will continue to follow up with me in 01/2019, for her next cycle of treatment. 2. Pneumonia/Respiratory tract infection. She underwent a chest x-ray on 01/16/2019, which revealed linear atelectasis in the right lung base, but no evidence of pneumonia. Continue IV antibiotics per Dr. Coleman. Appreciate consult by Dr Barnes. 3. Diffuse bony demineralization due to multiple myeloma. She was started on Zometa on 08/11/2017. 4. 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 Overall, stable. Continue to monitor. Comment Review of Relevant I have reviewed the following items jamir (where applicable) has been applied. Labs Laboratory Tests Test 01/16/19 12:52 01/17/19 10:00 White Blood Count 7.2 x10^3/uL (4.0-11.0) Red Blood Count 4.41 x10^6/uL (3.50-5.40) Hemoglobin 13.9 g/dL (12.0-15.5) Hematocrit 41.0 % (36.0-47.0) Mean Corpuscular Volume 93 fL (79-100) Mean Corpuscular Hemoglobin 32 pg (25-35) Mean Corpuscular Hemoglobin Concent 34 g/dL (31-37) Red Cell Distribution Width 14.4 % (11.5-14.5) Platelet Count 134 x10^3/uL (140-400) Neutrophils (%) (Auto) 67 % (31-73) Lymphocytes (%) (Auto) 23 % (24-48) Monocytes (%) (Auto) 8 % (0-9) Eosinophils (%) (Auto) 1 % (0-3) Basophils (%) (Auto) 1 % (0-3) Neutrophils # (Auto) 4.8 x10^3/uL (1.8-7.7) Lymphocytes # (Auto) 1.7 x10^3/uL (1.0-4.8) Monocytes # (Auto) 0.6 x10^3/uL (0.0-1.1) Eosinophils # (Auto) 0.1 x10^3/uL (0.0-0.7) Basophils # (Auto) 0.1 x10^3/uL (0.0-0.2) Sodium Level 141 mmol/L (136-145) 148 mmol/L (136-145) Potassium Level 3.1 mmol/L (3.5-5.1) 2.8 mmol/L (3.5-5.1) Chloride Level 105 mmol/L (98-107) 111 mmol/L (98-107) Carbon Dioxide Level 25 mmol/L (21-32) 28 mmol/L (21-32) Anion Gap 11 (6-14) 9 (6-14) Blood Urea Nitrogen 20 mg/dL (7-20) 11 mg/dL (7-20) Creatinine 1.5 mg/dL (0.6-1.0) 1.3 mg/dL (0.6-1.0) Estimated GFR (Cockcroft-Gault) 33.3 39.3 BUN/Creatinine Ratio 13 (6-20) Glucose Level 103 mg/dL (70-99) 85 mg/dL (70-99) Lactic Acid Level 1.3 mmol/L (0.4-2.0) Calcium Level 9.0 mg/dL (8.5-10.1) 8.5 mg/dL (8.5-10.1) Total Bilirubin 0.6 mg/dL (0.2-1.0) Aspartate Amino Transf (AST/SGOT) 17 U/L (15-37) Alanine Aminotransferase (ALT/SGPT) 12 U/L (14-59) Alkaline Phosphatase 68 U/L (46-116) Troponin I Quantitative < 0.017 ng/mL (0.000-0.055) Total Protein 7.0 g/dL (6.4-8.2) Albumin 3.7 g/dL (3.4-5.0) Albumin/Globulin Ratio 1.1 (1.0-1.7) Laboratory Tests Test 01/17/19 10:00 Sodium Level 148 mmol/L (136-145) Potassium Level 2.8 mmol/L (3.5-5.1) Chloride Level 111 mmol/L (98-107) Carbon Dioxide Level 28 mmol/L (21-32) Anion Gap 9 (6-14) Blood Urea Nitrogen 11 mg/dL (7-20) Creatinine 1.3 mg/dL (0.6-1.0) Estimated GFR (Cockcroft-Gault) 39.3 Glucose Level 85 mg/dL (70-99) Calcium Level 8.5 mg/dL (8.5-10.1) Microbiology 01/16/19 Blood Culture - Preliminary, Resulted NO GROWTH AFTER 1 DAY Medications Current Medications Sodium Chloride 1,000 ml @ 1,000 mls/hr 1X ONCE IV Last administered on 01/16/19at 13:12; Start 01/16/19 at 13:00; Stop 01/16/19 at 13:59; Status DC Albuterol Sulfate (Ventolin Neb Soln) 2.5 mg 1X ONCE NEB Last administered on 01/16/19at 13:34; Start 01/16/19 at 13:00; Stop 01/16/19 at 13:01; Status DC Ondansetron HCl (Zofran) 4 mg PRN Q8HRS PRN IV NAUSEA/VOMITING; Start 01/16/19 at 15:00; Stop 01/17/19 at 14:59; Status DC Fentanyl Citrate (Fentanyl 2ml Vial) 50 mcg PRN Q1HR PRN IV PAIN; Start 01/16/19 at 15:00; Stop 01/17/19 at 14:59; Status DC Acetaminophen (Tylenol) 650 mg PRN Q4HRS PRN PO FEVER; Start 01/16/19 at 15:00; Stop 01/17/19 at 14:59; Status DC Albuterol/ Ipratropium (Duoneb) 3 ml RTQID NEB Last administered on 01/17/19at 15:33; Start 01/16/19 at 16:00; Stop 01/17/19 at 15:59; Status DC Azithromycin 250 ml @ 250 mls/hr 1X ONCE IV Last administered on 01/16/19 15:21; Start 01/16/19 at 15:00; Stop 01/16/19 at 15:59; Status DC Acyclovir (Zovirax) 800 mg BID PO Last administered on 01/18/19 08:38; Start 01/16/19 at 18:00 Methylprednisolone Sodium Succinate (SOLU-Medrol 40MG VIAL) 40 mg Q8HRS IV Last administered on 01/18/19 05:43; Start 01/17/19 at 10:00 Potassium Chloride (Klor-Con) 20 meq 1X ONCE PO Last administered on 01/17/19 11:11; Start 01/17/19 at 10:00; Stop 01/17/19 at 10:01; Status DC Aspirin (Ecotrin) 81 mg DAILY PO Last administered on 01/18/19 08:37; Start 01/17/19 at 11:00 Fludrocortisone Acetate (Florinef) 0.1 mg DAILY PO Last administered on 01/18/19 08:37; Start 01/17/19 at 11:00 Gabapentin (Neurontin) 400 mg HS PO Last administered on 01/17/19 21:29; Start 01/17/19 at 21:00 Acetaminophen/ Hydrocodone Bitart (Lortab 7.5/325) 1 tab PRN DAILY PRN PO PAIN; Start 01/17/19 at 10:45 Levothyroxine Sodium (Synthroid) 50 mcg DAILY06 PO Last administered on 01/18/19 05:44; Start 01/17/19 at 11:00 Simvastatin (Zocor) 40 mg QHS PO Last administered on 01/17/19 21:29; Start 01/17/19 at 21:00 Vitamin D (Vitamin D3) 2,000 unit AFTRNOON PO Last administered on 01/17/19 18:14; Start 01/17/19 at 13:00 Cyanocobalamin (Vitamin B-12) 500 mcg DAILY PO Last administered on 01/18/19 08:37; Start 01/17/19 at 11:00 Pantoprazole Sodium (Protonix) 40 mg DAILYAC PO Last administered on 11/5/19at 08:37; Start 01/17/19 at 11:00 Azithromycin 500 mg/Sodium Chloride 250 ml @ 250 mls/hr Q24H IV Last administered on 01/17/19at 21:29; Start 01/17/19 at 20:00 Ceftriaxone Sodium (Rocephin) 1 gm Q24H IVP Last administered on 01/17/19at 21:30; Start 01/17/19 at 21:00 Active Scripts Active Reported Hydrocodone-Acetamin 7.5-325 (Hydrocodone/Acetaminophen) 1 Each Tablet 1 Each PO PRN DAILY PRN Protonix (Pantoprazole Sodium) 20 Mg Tablet.dr 2 Tab PO DAILY Fludrocortisone Acetate 0.1 Mg Tablet 1 Tab PO DAILY Gabapentin (Gabapentin) 100 Mg Capsule 400 Mg PO HS Aspirin Ec (Aspirin) 81 Mg Tablet.dr 1 Tab PO DAILY Vitamin B-12 (Cyanocobalamin (Vitamin B-12)) 500 Mcg Tablet 500 Mcg PO DAILY Vitamin D-3 (Cholecalciferol (Vitamin D3)) 2,000 Unit Capsule 2,000 Unit PO AFTRNOON Simvastatin 40 Mg Tablet 1 Tab PO QHS Levothyroxine Sodium 50 Mcg Tablet 1 Tab PO DAILY take 10 tablets by mouth once weekly on days 1, 8, and 15 of each 21 day cycle. Vitals/I & O Vital Sign - Last 24 Hours 01/17/19 01/17/19 01/17/19 01/17/19 11:00 11:19 15:00 15:34 Temp 98.7 98.6 98.7 98.6 Pulse 65 84 Resp 16 16 B/P (MAP) 136/67 (90) 133/55 (81) Pulse Ox 94 95 93 96 O2 Delivery Nasal Cannula Room Air Room Air Nasal Cannula O2 Flow Rate 2.0 2.0 01/17/19 01/17/19 01/17/19 01/18/19 19:16 20:00 23:10 03:12 Temp 97.9 98.0 98.2 97.9 98.0 98.2 Pulse 81 79 67 Resp 18 18 18 B/P (MAP) 133/58 (83) 133/66 (88) 125/63 (83) Pulse Ox 91 97 92 O2 Delivery Room Air Nasal Cannula Nasal Cannula Room Air O2 Flow Rate 2.0 2.0 Intake and Output 11/07/0201/17/19 01/18/19 15:00 23:00 07:00 Intake Total 480 ml 220 ml 450 ml Balance 480 ml 220 ml 450 ml SABRINA ABARCA MD Jan 18, 2019 08:51
[2019-01-18 09:51] LABS: CALCIUM 8.5 mg/dL (8.5-10.1); CREATININE 1.2 mg/dL (0.6-1.0); GFR 43.1; POTASSIUM 3.1 mmol/L (3.5-5.1)
--- NOTE | 2019-01-18 10:42 | PDOC ---
PULMONARY PROGRESS NOTES Vitals Vital Signs Date Time Temp Pulse Resp B/P (MAP) Pulse Ox O2 Delivery O2 Flow Rate FiO2 01/18/19 08:00 Room Air 01/18/19 07:00 97.5 92 18 146/78 (100) 95 97.5 01/17/19 23:10 2.0 Labs Laboratory Tests Test 01/16/19 12:52 01/17/19 10:00 01/18/19 09:20 White Blood Count 7.2 x10^3/uL (4.0-11.0) Red Blood Count 4.41 x10^6/uL (3.50-5.40) Hemoglobin 13.9 g/dL (12.0-15.5) Hematocrit 41.0 % (36.0-47.0) Mean Corpuscular Volume 93 fL (79-100) Mean Corpuscular Hemoglobin 32 pg (25-35) Mean Corpuscular Hemoglobin Concent 34 g/dL (31-37) Red Cell Distribution Width 14.4 % (11.5-14.5) Platelet Count 134 x10^3/uL (140-400) Neutrophils (%) (Auto) 67 % (31-73) Lymphocytes (%) (Auto) 23 % (24-48) Monocytes (%) (Auto) 8 % (0-9) Eosinophils (%) (Auto) 1 % (0-3) Basophils (%) (Auto) 1 % (0-3) Neutrophils # (Auto) 4.8 x10^3/uL (1.8-7.7) Lymphocytes # (Auto) 1.7 x10^3/uL (1.0-4.8) Monocytes # (Auto) 0.6 x10^3/uL (0.0-1.1) Eosinophils # (Auto) 0.1 x10^3/uL (0.0-0.7) Basophils # (Auto) 0.1 x10^3/uL (0.0-0.2) Sodium Level 141 mmol/L (136-145) 148 mmol/L (136-145) 142 mmol/L (136-145) Potassium Level 3.1 mmol/L (3.5-5.1) 2.8 mmol/L (3.5-5.1) 3.1 mmol/L (3.5-5.1) Chloride Level 105 mmol/L (98-107) 111 mmol/L (98-107) 106 mmol/L (98-107) Carbon Dioxide Level 25 mmol/L (21-32) 28 mmol/L (21-32) 26 mmol/L (21-32) Anion Gap 11 (6-14) 9 (6-14) 10 (6-14) Blood Urea Nitrogen 20 mg/dL (7-20) 11 mg/dL (7-20) 15 mg/dL (7-20) Creatinine 1.5 mg/dL (0.6-1.0) 1.3 mg/dL (0.6-1.0) 1.2 mg/dL (0.6-1.0) Estimated GFR (Cockcroft-Gault) 33.3 39.3 43.1 BUN/Creatinine Ratio 13 (6-20) Glucose Level 103 mg/dL (70-99) 85 mg/dL (70-99) 176 mg/dL (70-99) Lactic Acid Level 1.3 mmol/L (0.4-2.0) Calcium Level 9.0 mg/dL (8.5-10.1) 8.5 mg/dL (8.5-10.1) 8.5 mg/dL (8.5-10.1) Total Bilirubin 0.6 mg/dL (0.2-1.0) Aspartate Amino Transf (AST/SGOT) 17 U/L (15-37) Alanine Aminotransferase (ALT/SGPT) 12 U/L (14-59) Alkaline Phosphatase 68 U/L (46-116) Troponin I Quantitative < 0.017 ng/mL (0.000-0.055) Total Protein 7.0 g/dL (6.4-8.2) Albumin 3.7 g/dL (3.4-5.0) Albumin/Globulin Ratio 1.1 (1.0-1.7) Laboratory Tests Test 01/18/19 09:20 Sodium Level 142 mmol/L (136-145) Potassium Level 3.1 mmol/L (3.5-5.1) Chloride Level 106 mmol/L (98-107) Carbon Dioxide Level 26 mmol/L (21-32) Anion Gap 10 (6-14) Blood Urea Nitrogen 15 mg/dL (7-20) Creatinine 1.2 mg/dL (0.6-1.0) Estimated GFR (Cockcroft-Gault) 43.1 Glucose Level 176 mg/dL (70-99) Calcium Level 8.5 mg/dL (8.5-10.1) Medications Active Scripts Medications Dose Route/Sig Max Daily Dose Days Date Category Dose Instructions Hydrocodone-Acetamin 7.5-325 (Hydrocodone/Acetaminophen) 1 Each Tablet 1 Each PO PRN DAILY PRN 03/11/18 Reported Protonix (Pantoprazole Sodium) 20 Mg Tablet.dr 2 Tab PO DAILY 03/11/18 Reported Fludrocortisone Acetate 0.1 Mg Tablet 1 Tab PO DAILY 01/04/18 Reported Gabapentin (Gabapentin) 100 Mg Capsule 400 Mg PO HS 12/31/17 Reported Aspirin Ec (Aspirin) 81 Mg Tablet.dr 1 Tab PO DAILY 12/31/17 Reported Vitamin B-12 (Cyanocobalamin (Vitamin B-12)) 500 Mcg Tablet 500 Mcg PO DAILY 08/26/17 Reported Vitamin D-3 (Cholecalciferol (Vitamin D3)) 2,000 Unit Capsule 2,000 Unit PO AFTRNOON 08/26/17 Reported Simvastatin 40 Mg Tablet 1 Tab PO QHS 12/06/15 Reported Levothyroxine Sodium 50 Mcg Tablet 1 Tab PO DAILY 12/06/15 Reported take 10 tablets by mouth once weekly on days 1, 8, and 15 of each 21 day cycle. Impression . IMPRESSION: 1. Clinical pneumonia, patient failed outpatient treatment. 2. Immunocompromised state secondary to multiple myeloma. 3. Hyperlipidemia. 4. Multiple myeloma. Plan . 1. Continue current support with antibiotics and steroids, bronchodilators. 2. I did go over the possibility of performing a bronchoscopy. The patient was not enamored with the idea at this time. For now, I feel comfortable enough to continue current the medical regimen. Discharge home soon and follow up in my office. Dr. Coleman, I do appreciate the privilege in sharing in the patient's care, the patient was also informed that her cough would last approximately 4-6 weeks, mostly related to acute tracheobronchitis, possibly viral in origin. ROBERTA ROBLES MD Jan 18, 2019 10:42
[2019-01-18 11:00] VITALS: BP 115/49
--- NOTE | 2019-01-18 13:53 | NUR ---
Pt. discharged home. Discharge teaching done with Pt and spouse. Prescription given to family. Pt taken down by wheelchair and transportation provided by family.
--- NOTE | 2019-01-18 22:30 | DS ---
DATE OF DISCHARGE: 01/18/2019 PRIMARY DIAGNOSIS: Clinical pneumonia. ADDITIONAL DIAGNOSES: 1. Severe cough. 2. Bronchospasm. 3. Immunocompromised status secondary to multiple myeloma. 4. Hypertension. 5. Hypothyroidism. CHIEF COMPLAINT AND HISTORY OF PRESENT ILLNESS: This 83-year-old white female has been treated for a week or more after seen in the office with bronchitis/pneumonia-type symptoms. She is immunocompromised due to ongoing treatment and having multiple myeloma. She has been on Levaquin for the week, is not doing any better, but starting to begin short of breath with any sort of exertion and presented to the Emergency Room where she was found to have some O2 desats with exercise with initial chest x-ray showing some linear atelectasis at right lung base, but no other abnormalities and admitted for the same. SUMMARY OF STAY: The patient was admitted. She was covered with Rocephin, Zithromax. Through the stay was added on IV steroids and improved on a daily basis to where her coughing spells had decreased dramatically and some wheezing that was started initially on exam was gone by the day of discharge. It was felt she could be discharged with close outpatient followup and this was accomplished. DISPOSITION: The patient is discharged to home. DIET: Regular. ACTIVITY: As tolerated, office in 1 week. DISCHARGE MEDICATIONS: Those of her regular home meds plus Levaquin to finish the prescription she has at home on a prednisone taper of 40 mg daily for 3 days, 30 for 3 days, 20 for 3 days, 10 for 3 days, 5 for 2 days and stop. JESSICA AALNIZ MD DR: BRONWYN/vic JOB#: [id number] / [id number]
== END 2019-01-18 13:45 | disposition home or self-care (01) | DRG 177 ==
LOC: ER 12:19 → 6 SOUTH 14:41
PROVIDERS: ADMIT Family Medicine; ATTEND Family Medicine
DX: J15.6 Pneumonia due to other Gram-negative bacteria (principal); N17.0 Acute kidney failure with tubular necrosis; C90.00 Multiple myeloma not having achieved remission; J98.11 Atelectasis; J98.01 Acute bronchospasm; E03.9 Hypothyroidism, unspecified; E78.00 Pure hypercholesterolemia, unspecified; E78.5 Hyperlipidemia, unspecified; G62.0 Drug-induced polyneuropathy; T45.1X5A Adverse effect of antineoplastic and immunosuppressive drugs, initial encounter; Y92.89 Other specified places as the place of occurrence of the external cause; I10 Essential (primary) hypertension; Z82.3 Family history of stroke; Z82.49 Family history of ischemic heart disease and other diseases of the circulatory system; Z88.1 Allergy status to other antibiotic agents; Z88.2 Allergy status to sulfonamides; Z88.8 Allergy status to other drugs, medicaments and biological substances
CPT/HCPCS: 36415; 71046; 80048; 80053; 83605; 84484; 85025; 87040; 93005; 94640; 96361; 96365; J0456; J0696; J2920; J7030; J7050; J7613; J7620; 97535; 99285-25; G0378

== ENCOUNTER → 2019-04-26 | Outpatient (CLI) | payer MEDICARE, BC ==
--- NOTE | 2019-04-27 09:09 | RAD ---
Complete CR bone survey - osseous metastatic disease Clinical indications: History of multiple myeloma. Cervical bone pain. COMPARISON: July 21, 2017. FINDINGS: PA view chest: No lytic process. No lung infiltrate or lung mass. Right IJ Port-A-Cath tip within the lower SVC above the level of the right atrium. Lateral view of the skull: No lytic process. 2 view cervical spine: No lytic process. Degenerative endplate spurring and disc space narrowing is seen from C3-4 through C6-7. 2 view thoracic spine: No compression fracture. No lytic process. AP view right humerus: Previously seen small lytic lesions have significantly improved. There are a few residual small lytic lesions present within the proximal and mid shaft. No large lytic lesion or pathologic fracture is seen. AP view left humerus: 2 small cortical lucencies are seen within the mid to distal shaft of the left humerus which are unchanged. No endosteal scalloping is seen here. Small cortical lucencies without endosteal scalloping are more typically seen with osteoporosis. No new lytic lesion of the left humerus is seen. 2 view lumbar spine: Grade 2-3 anterolisthesis of L5-S1 is seen. This may be secondary to spondylolysis. Mild compression deformity of L4 is stable. No new compression fracture is seen. No lytic process is evident. AP view of the pelvis: No lytic process. AP view right femur: Small lytic lesions of the proximal shaft and intertrochanteric area and femoral neck are again seen and are unchanged. This is best seen in the AP view of the pelvis. AP view left femur: Small lytic lesions of the proximal shaft and intertrochanteric area and femoral neck and head are again seen and are unchanged. This is best seen in the AP view of the pelvis. AP view right tibia/fibula: No lytic process. AP view left tibia/fibula: No lytic process. AP view left radius/ulna: No lytic process. AP view of the right radius/ulna: No lytic process. IMPRESSION: Significant improvement in small lytic lesions of the right humerus since the previous study of July 21, 2017. Stable small lytic lesions of the proximal femur on both sides. No new lytic lesion is seen. Electronically signed by: Ajay Becerra MD (04/27/2019 9:06 AM) [facility]
== END | disposition home or self-care (01) ==
LOC: RAD 10:21
PROVIDERS: ATTEND Internal Medicine Hematology & Oncology
DX: C90.00 Multiple myeloma not having achieved remission (principal); M43.17 Spondylolisthesis, lumbosacral region; M48.56XA Collapsed vertebra, not elsewhere classified, lumbar region, initial encounter for fracture; M89.9 Disorder of bone, unspecified; M48.02 Spinal stenosis, cervical region
CPT/HCPCS: 77075

== ENCOUNTER → 2019-05-17 | Outpatient (CLI) | payer MEDICARE, BC ==
--- NOTE | 2019-05-17 14:06 | KCIC ---
Left lower extremity venous duplex study Clinical History: Lower extremity pain Technique: Using a combination of real time ultrasound imaging and color-flow and pulse Doppler imaging techniques, including spectral analysis, graded compression and augmentation, duplex evaluation of the deep venous system of the left lower extremity was performed. Multiple images were obtained. Findings: There is no sonographic evidence of deep venous thrombosis involving the visualized deep venous structures of the left lower extremity Impression: No evidence of deep venous thrombosis involving the left lower extremity Electronically signed by: Gutierrez Benavidez MD (05/17/2019 2:03 PM) [id number]
== END | disposition home or self-care (01) ==
LOC: KCIC US 13:05
PROVIDERS: ATTEND Internal Medicine Hematology & Oncology
DX: C90.00 Multiple myeloma not having achieved remission (principal); R22.42 Localized swelling, mass and lump, left lower limb
CPT/HCPCS: 93971